=== PATIENT | female | born 1935 | race Caucasian/White ===

== ENCOUNTER 2019-10-21 16:30 | Emergency (ER) | payer MEDICARE, BC, SELFPAY ==
--- NOTE | ~2019-10-21 | XR_ITS ---
EXAMINATION: XR wrist LT min 3V DATE: 10/21/2019 18:11 INDICATION: Left wrist pain post fall TECHNIQUE: Posteroanterior, ulnar deviation, oblique, and lateral views of the left wrist were obtain ed. COMPARISON: none FINDINGS: Nondisplaced mildly impacted fracture of the distal left radius. The fracture appears mildly comminut ed and could not exclude intra-articular extension although no fracture gap or incongruity is evident at the articular surface. No other fractures identified. Alignment remains near-anatomic. Chondrocal cinosis most prominent at the triangular fiber cartilage complex. 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 Mild osteoarthritis at the distal radioulnar, midcarpal and m ultiple metacarpophalangeal joints. Osteopenia. IMPRESSION: 1. Nondisplaced impacted likely comminuted and potentially intra-articular fracture of the distal lef t radius. Reviewed, dictated and finalized at location A. IMPRESSION: 1. Nondisplaced impacted likely comminuted and potentially intra-articular frac ture of the distal left radius.
--- NOTE | ~2019-10-21 | XR_ITS ---
EXAMINATION: XR knee LT min 4V DATE: 10/21/2019 18:11 INDICATION: Abrasions at the anterior left knee post fall TECHNIQUE: Anteroposterior, 2 oblique and crosstable lateral views of the left knee were obtained COMPARISON: None. FINDINGS: Left total knee arthroplasty without patellar resurfacing which appears well seated in near-anatomic alignment. No fracture. No left knee joint effusion. Mild prepatellar soft tissue swelling. No radiop aque foreign bodies. Scattered atherosclerotic calcifications. IMPRESSION: 1. No left knee joint effusion, acute osseous abnormality or radiopaque foreign bodies. Reviewed, dictated and finalized at location A.
--- NOTE | ~2019-10-21 | CT_ITS ---
EXAMINATION: CT brain wo con, CT facial bones wo con DATE: 10/21/2019 18:01 INDICATION: Fall with head injury TECHNIQUE: 1. Computed tomography (CT) of the head was performed without intravenous contrast. Sagittal and melody nal reconstructions were obtained. The mA was adjusted according to patient size. Iterative reconstru ction technique was employed. The dose-length product was 605 mGy-cm. 2. CT of the facial bones and maxillofacial region was performed without intravenous contrast. Sagitt al and coronal reconstructions were obtained. Automated exposure control and iterative reconstruction technique were employed. The dose-length product was 304 mGy-cm. COMPARISON: None. FINDINGS: Head CT: No calvarial fracture. No acute intracranial hemorrhage, acute infarction or abnormal extra axial flu id collection. There is moderate scattered white matter hypoattenuation consistent with chronic small vessel ischemic disease. Ventricles are normal and symmetric. No mass/mass effect. Small right masto id effusion. Intracranial calcified cerebral atherosclerosis is noted. Maxillofacial CT: Superolateral right frontal scalp hematoma and laceration with mild soft tissue swelling stenting int o the right preseptal soft tissues of the right orbit. No post septal inflammatory stranding. Bilater al globes appear intact with images of bilateral intraocular lens replacement. No maxillofacial fract ures. Paranasal sinuses are clear. Bilateral temporomandibular joints are normal alignment. Mild markie apical lucency surrounding one of the roots of the posterior most remaining right maxillary molar. At herosclerotic calcification is at the bilateral carotid bulbs. Severe cervical spondylosis. IMPRESSION: 1. No maxillofacial or calvarial fractures. 2. Moderate scattered white matter hypoattenuation consistent with chronic small vessel ischemic dise ase. No acute intracranial process. 3. Severe spondylosis in the visualized mid to upper cervical spine with no acute osseous abnormality . Reviewed, dictated and finalized at location A. IMPRESSION: 1. No maxillofacial or calvarial fractures. 2. Moderate scattered white matter hypoattenuation consistent with chronic smal l vessel ischemic disease. No acute intracranial process. 3. Severe spondylosis in the visualized mid to upper cervical spine with no acu te osseous abnormality.
--- NOTE | ~2019-10-21 | XR_ITS ---
EXAMINATION: XR knee RT min 4V DATE: 10/21/2019 18:11 INDICATION: Right knee pain post fall after recent right knee replacement TECHNIQUE: Anteroposterior, 2 oblique and crosstable lateral views of the right knee were obtained COMPARISON: None. FINDINGS: Right total knee arthroplasty without patellar resurfacing which appears well seated in near-anatomic alignment. No fracture. Small right knee joint effusion without layering lipohemarthrosis. Scattered atherosclerotic calcifications. IMPRESSION: 1. Right total knee arthroplasty and small right knee joint effusion without evident acute osseous ab normality. Reviewed, dictated and finalized at location A. IMPRESSION: 1. Right total knee arthroplasty and small right knee joint effusion without ev ident acute osseous abnormality.
[2019-10-21 16:31] VITALS: BP 188/81; PULSE 99; RESP 18; TEMP 36.3; O2SAT 97
--- NOTE | 2019-10-21 17:36 | ED.HEATRA ---
HPI - Head Injury General Chief complaint: Head Injury Stated complaint: fall Time Seen by Provider: 10/21/19 17:11 Source: patient Mode of arrival: ambulatory Limitations: no limitations History of Present Illness HPI Narrative: This is a 84 year old female that presents to the ER for a fall today. Reports she was gardening and wasn't using her walker. Reports she lost her balance and fell onto the concrete. Does report hitting her head. Denies loss of consciousness. Reports a laceration to the lip and to the forehead. Also reports pain in her left wrist. Denies vision changes, chest pain, shortness of breath, vomiting, weakness or numbness. Related Data Allergies Allergy/AdvReac Type Severity Reaction Status Date / Time clarithromycin Allergy Unknown Unknown Verified 10/21/19 16:36 Review of Systems Review of Systems: Narrative: CONSTITUTIONAL: Denies fever EYES: Denies visual changes CARDIOVASCULAR: Denies chest pain RESPIRATORY: Denies dyspnea. GASTROINTESTINAL: Denies vomiting MUSCULOSKELETAL: Reports joint pain, and myalgia. NEUROLOGIC: Denies headache, numbness, or weakness. All systems reviewed & are unremarkable except as noted in HPI and below PMFSH Past Medical History Medical History (Updated 10/21/19 @ 21:45 by Sarai Will PA-C) History of COPD History of hypertension History of osteoporosis Surgical History Surgical History (Updated 10/21/19 @ 17:42 by Sarai Will PA-C) History of appendectomy History of hysterectomy Family History Family History (Updated 01/01/14 @ 07:13 by DOCTOR UNKNOWN) Mother Family history of heart disease in male family member before age 55 Sibling Family history of heart disease in male family member before age 55 Other Diabetes mellitus Family history of cardiovascular disease Hypertension Social History Social History Alcohol intake: current Gender identity (if verbalized by the patient): Female Exam Narrative: Exam Narrative: GENERAL: Elderly, well-nourished, and in no acute distress. HEAD: Normocephalic. 1.5 cm linear laceration to subcutaneous tissue over right eyebrow EYES: PERRLA and EOMI. Right upper and lower eyelid with mild ecchymosis and edema ENT: Nares clear, no rhinorrhea or epistaxis. Mucous membranes moist. Oropharynx without tonsillar hypertrophy exudate or other lesions. Bilateral TMs pearly lopez non-bulging. Right side of upper lip with 1 cm linear laceration NECK: Supple. No adenopathy or masses. No midline cervical spine tenderness CHEST: Clear to auscultation. No respiratory distress. No wheezes rales or rhonchi HEART: Regular rate and rhythm. No murmur heard. Normal peripheral pulses. BACK: No midline thoracic or lumbar spine tenderness EXTREMITIES: Normal range of motion. Mild edema to the left wrist. Normal sensation. Normal radial pulses SKIN: Warm, dry, no rash. NEURO: No focal deficits. Alert and oriented x3. Cranial nerves II through XII grossly intact PSYCH: Normal mood and affect Course Consultations Consultation #1: Spoke with Dr. Lloyd about patient and work-up will follow-up in clinic Date: 10/21/19 Time: 21:39 Vital Signs Vital signs: Vital Signs Temperature 97.4 F L 10/21/19 16:31 Pulse Rate 99 10/21/19 16:31 Respiratory Rate 18 10/21/19 16:31 Blood Pressure 188/81 H 10/21/19 16:31 Pulse Oximetry 97 10/21/19 16:31 Temperature 97.4 F L 10/21/19 16:31 Pulse Rate 75 10/21/19 19:56 Respiratory Rate 22 H 10/21/19 19:56 Blood Pressure 173/97 H 10/21/19 19:56 Pulse Oximetry 98 10/21/19 19:56 MDM - Head Injury MDM Narrative Medical decision making narrative: Patient presents the emergency department after a fall today with head injury. Patient uses a walker to walk and was not using her walker today. Patient is neurologically intact. CT scan of the brain and facial bones is without acute findings. Bilateral knee x-rays are without acute findings. Left wrist x-r
[2019-10-21] MEDS: TETANUS,DIPHTHERIA,AC PERTUSSIS ADULT (0.5 ML) BOOSTRIX IM (18:14)
[2019-10-21 19:56] VITALS: BP 173/97; PULSE 75; RESP 22; O2SAT 98
[2019-10-21 21:00] VITALS: BP 153/129; RESP 18; O2SAT 98
[2019-10-21 22:40] VITALS: RESP 20; O2SAT 98
== END 2019-10-21 22:20 | disposition home or self-care (01) ==
PROVIDERS: Emergency Provider Emergency Medicine; PCP Nurse Practitioner Adult Health
DX: S52.502A Unspecified fracture of the lower end of left radius, initial encounter for closed fracture (principal); S01.111A Laceration without foreign body of right eyelid and periocular area, initial encounter; S01.511A Laceration without foreign body of lip, initial encounter; J44.9 Chronic obstructive pulmonary disease, unspecified; I10 Essential (primary) hypertension; W01.0XXA Fall on same level from slipping, tripping and stumbling without subsequent striking against object, initial encounter; Z23 Encounter for immunization; M47.812 Spondylosis without myelopathy or radiculopathy, cervical region
CPT/HCPCS: 12011; 70450; 70486; 73110; 73564; 90471; 90715; 99284; A9270

== ENCOUNTER 2021-12-23 13:37 | Outpatient (CLI) | payer MEDICARE, BC, SELFPAY ==
--- NOTE | 2021-12-27 07:45 | WPDHOLTEREM ---
Holter/Event Monitor Holter/Event Monitor Date of procedure: 12/23/21 Holter/Event Procedure: 48 Hr Holter Monitor Indications: Irregular heart rate Conclusion: 1. 48 hour holter monitor on 12/23/21. 2. Underlying rhythm is sinus rhythm with sinus arrhythmia. HR range 34-112 bpm; average HR 81 bpm. HR at 34 bpm at 13:00. 3. There are 61 premature supraventricular complexes and 3 supraventricular couplets. No supraventricular tachycardia. 4. There are 1,918 premature ventricular complexes. No ventricular tachycardia. 5. No sinoatrial or atrioventricular blocks. No significant pauses greater than 2 seconds. 6. No symptoms available for correlation.
== END 2021-12-23 13:38 | disposition home or self-care (01) ==
LOC: ANHCARD 13:39
PROVIDERS: PCP Nurse Practitioner Adult Health; Visit Provider Nurse Practitioner Adult Health
DX: R00.8 Other abnormalities of heart beat (principal)
CPT/HCPCS: 93225; 93226

== ENCOUNTER 2022-10-27 21:19 | Observation (INO) | payer MEDICARE, BC, SELFPAY ==
[2022-10-27] VITALS (9 sets, daily range): BP systolic 124–136; BP diastolic 64–87; PULSE 100–113; RESP 20–23; TEMP 36.6–36.9; O2SAT 85–98
--- NOTE | ~2022-10-27 | CT_ITS ---
EXAMINATION: CTA chest PE protocol DATE: 10/27/2022 22:22 INDICATION: lung CA, hypoxia TECHNIQUE: Computed tomography angiography (CTA) of the chest was performed with 100 mL Omnipaque-350 intravenous contrast timed to evaluate the pulmonary arteries. Coronal maximum intensity projection 3D-reconstructions were created by the technologist. The dose-length product (DLP) was 232.11 mGy-cm. Automated exposure control and iterative reconstruction technique were employed. COMPARISON: CT T and L-spine 04/05/2019; x-ray chest 09/18/2014. FINDINGS: Lung parenchyma and airways: Right suprahilar mass which occludes the traversing right upper lobe pul monary arteries and bronchi. Multiple pulmonary nodules. Severe emphysematous change. Interlobular se ptal thickening. Pleura: Small bilateral pleural fluid collections, greater on the right. Thoracic inlet, axillae and chest wall: Unremarkable. Thoracic aorta: No aneurysm or dissection. Moderate arch calcification. Mediastinum: Mediastinal and bilateral hilar lymphadenopathy. Heart and pericardium: Moderate volume pericardial fluid. Coronary artery calcifications: Moderate. Upper abdomen: No significant finding. Bones: Partially visualized posterior thoracic spine fusion hardware. Multiple lytic lesions in the t horacic spine concerning for metastatic disease. Pulmonary arteries: Study quality: Adequate. Mild narrowing of the right main pulmonary artery by med iastinal lymphadenopathy. Occluded right upper lobe pulmonary arteries. No pulmonary emboli detected. IMPRESSION: No CT evidence of acute pulmonary embolus. Right suprahilar mass causing occlusion of the traversing right upper lobe pulmonary arteries and bro nchi. Multiple pulmonary nodules and mediastinal and bilateral hilar lymphadenopathy, consistent with metas tatic disease. Moderate interstitial edema with small bilateral pleural effusions. Osseous metastatic disease Reviewed, dictated and finalized at location K. IMPRESSION: No CT evidence of acute pulmonary embolus. Right suprahilar mass causing occlusion of the traversing right upper lobe pulm onary arteries and bronchi. Multiple pulmonary nodules and mediastinal and bilateral hilar lymphadenopathy, consistent with metastatic disease. Moderate interstitial edema with small bilateral pleural effusions. Osseous metastatic disease
--- NOTE | 2022-10-27 21:34 | ECG_ITS ---
Measurements Intervals [place] Rate: 106 P: 73 AR: 137 QRS: -20 QRSD: 108 T: 53 QT: 333 QTc: 442 Interpretive Statements SINUS TACHYCARDIA ABNORMAL RHYTHM ECG NO PREVIOUS ECG AVAILABLE FOR COMPARISON Electronically Signed On 10-28-2022 8:17:59 CDT by Balwinder Page M.D.
[2022-10-27 21:58] LABS: Basophils Absolute Auto 0.1 K/mm3 (0.0-0.1); Basophils Percent Auto 0.6 % (0.2-1.2); Eosinophils Absolute Auto 0.9 K/mm3 (0-0.3); Eosinophils Percent Auto 8.8 % (0-4.4); Hematocrit 39.7 % (37.0-47.0); Hemoglobin 13.1 g/dL (12.0-15.0); Immature Granulocyte Absolute 0.06 K/mm3 (0.00-0.031); Immature Granulocyte Percent A 0.6 % (0-0.5); Lymphocytes Absolute Auto 1.09 K/mm3 (0.9-3.2); Lymphocytes Percent Auto 10.2 % (18.3-44.2); Mean Corpuscular Hemoglobin 31.9 pg (26-34); Mean Corpuscular Volume 96.6 fl (80-100); Mean Platelet Volume 9.6 fl (7.4-10.4); Monocytes Absolute Auto 2.6 K/mm3 (0.1-0.6); Monocytes Percent Auto 24.1 % (2.6-8.5); Neutrophils Absolute Auto 5.9 K/mm3 (1.3-6.7); Neutrophils Percent Auto 55.7 % (45.5-73.1); Platelet Count Result 303 k/mm3 (150-375); Red Blood Count 4.11 M/mm3 (4.2-5.4); Red Cell Distribution Width 13.4 % (11.5-14.5); White Blood Count 10.7 K/mm3 (4.5-10.0)
[2022-10-27 22:07] LABS: Alanine Aminotransferase 19 U/L (6-35); Albumin Level 3.7 g/dL (3.5-5.1); Alkaline Phosphatase 70 U/L (38-126); Anion Gap 6 mmol/L (8-16); Aspartate Amino Transferase 29 U/L (14-36); Bilirubin,Total 0.6 mg/dL (0.2-1.3); Blood Urea Nitrogen 12 mg/dL (7-17); Calcium 8.8 mg/dL (8.4-10.2); Carbon Dioxide 24 mmol/L (22-30); Chloride 104 mmol/L (98-107); Estimated CRCL calculation 40 ml/min; Estimated Glomerular Filt Rate > 60; Glucose 110 mg/dL (65-110); Sodium 134 mmol/L (137-145)
[2022-10-27 22:08] LABS: INR 1.1; Prothrombin Time 14.4 Seconds (11.1-14.7)
[2022-10-27 22:09] LABS: Partial Thromboplastin Time 42.6 SECONDS (22.3-36.8)
--- NOTE | 2022-10-27 22:10 | ED.GENADULT ---
HPI - General Adult General Chief complaint: Shortness of Breath/Dyspnea Stated complaint: SOB, lung cancer Time Seen by Provider: 10/27/22 21:38 History of Present Illness HPI narrative: 87-year-old female presented the emergency department for evaluation of increased shortness of breath. Patient was recently diagnosed with lung cancer and is following up with oncology. Patient has not yet started any treatments. Patient states over the last few days she has had worsening shortness of breath and increased phlegm production. Upon arrival to the ED patient was saturating at 93% but then as she transferred to the bed she dipped down into the 80s. Patient is saturating well on 2 L of oxygen by nasal cannula. Patient denies any chest pain. Related Data Home Medications Medication Instructions Recorded Confirmed denosumab 60 mg/mL subcutaneous 60 mg subcut [id number] 12/04/19 10/28/22 syringe (Prolia) glucosamine sulfate 1,500 mg oral 1,500 mg PO BID 12/04/19 10/28/22 powder packet lysine 500 mg tablet (L-Lysine) 500 mg PO DAILY 12/04/19 10/28/22 mirtazapine 15 mg tablet 15 mg PO DAILY 12/04/19 10/28/22 multivitamin,yl-spzn-jygalmrm 1 tablet PO DAILY 12/04/19 10/28/22 (Complete Multivitamin tablet) omega 3-qzv-pkk-fish oil 1,200 mg 1 cap PO DAILY 12/04/19 10/28/22 (144 mg-216 mg) capsule (Fish Oil) turmeric root extract 500 mg 500 mg PO DAILY 12/04/19 10/28/22 capsule vitamin B complex (B 1 tablet PO DAILY 12/04/19 10/28/22 Complex-Vitamin B12 tablet) ascorbic acid (vitamin C) 1,000 mg PO DAILY 10/28/22 10/28/22 calcium carbonate 600 mg-vitamin 2 tablet PO DAILY 10/28/22 10/28/22 D3 5 mcg (200 unit) tablet cholestyramine (with sugar) 4 gram 1 ea PO TID 10/28/22 10/28/22 powder for susp in a packet diltiazem HCl 240 mg 240 mg PO DAILY 10/28/22 10/28/22 capsule,extended release 24 hr mirabegron 25 mg tablet,extended 25 mg PO DAILY 10/28/22 10/28/22 release 24 hr (Myrbetriq) potassium 99 mg PO DAILY 10/28/22 10/28/22 Allergies Allergy/AdvReac Type Severity Reaction Status Date / Time oxycodone [From Percocet] Allergy Severe vomit Verified 10/28/22 02:48 clarithromycin [From Biaxin] Allergy Ulcers Verified 10/28/22 02:48 amoxicillin AdvReac Diarrhea Verified 10/28/22 02:48 clavulanic acid AdvReac Diarrhea Verified 10/28/22 02:48 [From Augmentin] clopidogrel [From Plavix] AdvReac Other Verified 10/28/22 02:48 felodipine [From Plendil] AdvReac Cough Verified 10/28/22 02:48 tiotropium AdvReac Cough Verified 10/28/22 02:48 [From Spiriva with HandiHaler] Review of Systems Review of Systems: All systems reviewed & are unremarkable except as noted in HPI and below PMFSH Past Medical History Medical History Back pain with history of spinal surgery History of COPD History of hypertension History of osteoporosis Surgical History Surgical History H/O knee surgery History of appendectomy History of hysterectomy Family History Family History Mother Family history of heart disease in male family member before age 55 Heart disease Sibling Family history of heart disease in male family member before age 55 Lung cancer Father Hypertension Other Diabetes mellitus Grandparent Cancer Other Family history of cardiovascular disease Social History Social History Smoking packs per day: 2 Smoking cigarettes per day: 40.0 Smoking status: Former smoker Tobacco type: cigarettes Alcohol intake: current Drinks per week: 7 Substance use: never Substance use type: does not use Lack of Transportation: No Lack of Food: Never True Current Housing: I Have Housing Concerned About Future Housing: No Difficulty Paying Gas/Electric Bills: No Diffic
[2022-10-27] MEDS: ALBUTEROL SULFATE NEB 2.5 MG/3 ML INH 5 MG INHALATION (22:27)
[2022-10-28] VITALS (20 sets, daily range): BP systolic 106–138; BP diastolic 57–92; PULSE 84–108; RESP 18–24; TEMP 36.4–37.6; O2SAT 92–98; BMI 21.5
[2022-10-28 00:56] LABS: Influenza A QL RT-PCR Negative (Negative); Influenza B QL RT-PCR Negative (Negative); RSV RNA, RT-PCR Negative (Negative); SARS-CoV-2 RNA PCR Negative (Negative)
--- NOTE | 2022-10-28 01:21 | ADMGEN ---
This patient, Gladys Rollins, was admitted to Medical Room 259-. Patient/family oriented to hospital policies and general routines including ID bracelet, bed and alarms, visiting hours, pain management, procedures, bathroom and other care routines, personal items, smoking policy, room service/diet, and visiting hours. Information on how to activate the Rapid Response Team has been discussed. Patient/Family are encouraged to report perceived risks to care and to ask questions if they do not understand what they are told or what they should do.
[2022-10-28] MEDS: ALBUTEROL SULFATE NEB 2.5 MG/3 ML INH INHALATION ×4 (01:25→20:21)
[2022-10-28] MEDS: methylPREDNISolone SOD SUCC 125 MG VIAL 60 MG IV PUSH ×3 (05:33→20:59)
[2022-10-28 07:40] LABS: Basophils Absolute Auto 0.1 K/mm3 (0.0-0.1); Basophils Percent Auto 0.6 % (0.2-1.2); Eosinophils Absolute Auto 0.6 K/mm3 (0-0.3); Eosinophils Percent Auto 5.3 % (0-4.4); Hematocrit 37.2 % (37.0-47.0); Hemoglobin 12.1 g/dL (12.0-15.0); Immature Granulocyte Absolute 0.09 K/mm3 (0.00-0.031); Immature Granulocyte Percent A 0.8 % (0-0.5); Lymphocytes Absolute Auto 0.51 K/mm3 (0.9-3.2); Lymphocytes Percent Auto 4.7 % (18.3-44.2); Mean Corpuscular HGB Conc 32.5 g/dl (32-36); Mean Corpuscular Hemoglobin 31.5 pg (26-34); Mean Corpuscular Volume 96.9 fl (80-100); Mean Platelet Volume 9.6 fl (7.4-10.4); Monocytes Absolute Auto 1.2 K/mm3 (0.1-0.6); Neutrophils Absolute Auto 8.4 K/mm3 (1.3-6.7); Neutrophils Percent Auto 77.6 % (45.5-73.1); Platelet Count Result 289 k/mm3 (150-375); Red Blood Count 3.84 M/mm3 (4.2-5.4); Red Cell Distribution Width 13.3 % (11.5-14.5); White Blood Count 10.8 K/mm3 (4.5-10.0)
[2022-10-28 07:47] LABS: Alanine Aminotransferase 18 U/L (6-35); Albumin Level 3.3 g/dL (3.5-5.1); Alkaline Phosphatase 63 U/L (38-126); Anion Gap 8 mmol/L (8-16); Aspartate Amino Transferase 30 U/L (14-36); Bilirubin,Total 0.9 mg/dL (0.2-1.3); Blood Urea Nitrogen 10 mg/dL (7-17); Calcium 8.2 mg/dL (8.4-10.2); Carbon Dioxide 21 mmol/L (22-30); Chloride 106 mmol/L (98-107); Estimated CRCL calculation 47 ml/min; Estimated Glomerular Filt Rate > 60; Glucose 114 mg/dL (65-110); Sodium 135 mmol/L (137-145)
[2022-10-28] MEDS: ASCORBIC ACID 500 MG TABLET 1000 MG PO (09:24)
[2022-10-28] MEDS: ENOXAPARIN 40 MG/0.4 ML SYRINGE SUB-Q (09:25)
[2022-10-28] MEDS: MIRABEGRON 25 MG ER TABLET PO (09:25)
[2022-10-28] MEDS: OMEGA 3 POLYUNSAT FATTY ACIDS 1 GM CAP PO (09:25)
[2022-10-28] MEDS: VITAMIN B COMPLEX CAPSULE 1 CAP PO (09:25)
[2022-10-28] MEDS: CHOLESTYRAMINE (W/ SUGAR) 4 GM POWD.PACK PO (10:30)
--- NOTE | 2022-10-28 11:43 | PM.IMHP ---
H&P: HPI History of Present Illness Date/Time: 10/28/22 11:43 Chief Complaint: Shortness of breath Narrative: This is a 87-year-old female with a past medical history of COPD, hypertension and osteoporosis and recently diagnosed with lung cancer the present to the ED on 10/27/2022 with chief complaint of shortness of breath. She has not yet started treatment for lung cancer. She sees Dr. Nguyen. Shortness of breath started approximately 5 days ago in this was accompanied by increased mucus production. Patient states that the shortness of breath with both with activity and at rest. It made lying down flat very difficult. She does not have any history of any heart disease. Patient has been coughing up white/yellow sputum. Patient did not experience any hemoptysis, chest pain, lower extremity swelling. Patient was put on oxygen in the ED. With movement patient was dropping down into the 80s. She is currently on 2 L of oxygen. CTA of the chest did not reveal any PE. It did show right subhilar mass causing occlusion of the transversing right upper lobe pulmonary artery he has and bronchi I. There is evidence of osseous metastatic disease. Along with moderate interstitial edema and small pleural effusions. Patient was started on IV steroids. Patient likely experiencing her symptoms due to worsening metastatic disease. Will consult Oncology to assess the patient. Discussed with patient the need for possible home O2 evaluation. She is a past smoker of several packs a day for over 40 years and quit smoking approximately 25 years ago. She does drink several glasses of wine daily and will be monitor for alcohol withdrawal during her hospital stay. After trach in the patient she is feeling much better after receiving steroids and oxygen administration. Her symptoms have greatly improved. Review of Systems Review of Systems: All systems reviewed & are unremarkable except as noted in HPI and below PMFSH Past Medical History Medical History (Updated 10/28/22 @ 12:17 by Gisela Lynch PA-C) Back pain with history of spinal surgery History of COPD History of hypertension History of osteoporosis Surgical History Surgical History H/O knee surgery History of appendectomy History of hysterectomy Family History Family History Mother Family history of heart disease in male family member before age 55 Heart disease Sibling Family history of heart disease in male family member before age 55 Lung cancer Father Hypertension Other Diabetes mellitus Grandparent Cancer Other Family history of cardiovascular disease Social History Social History Smoking packs per day: 2 Smoking cigarettes per day: 40.0 Smoking status: Former smoker Tobacco type: cigarettes Alcohol intake: current Drinks per week: 7 Substance use: never Substance use type: does not use Lack of Transportation: No Lack of Food: Never True Current Housing: I Have Housing Concerned About Future Housing: No Difficulty Paying Gas/Electric Bills: No Difficulty Paying for Meds: No Currently Unemployed: No Education: High School Diploma/GED Difficulty w/ Childcare or Family Care: No Gender identity (if verbalized by the patient): Female Spiritual care concerns: No Meds Home Medications and Allergies Home Medications Medication Instructions Recorded Confirmed Type denosumab 60 mg/mL subcutaneous 60 mg subcut [id number] 12/04/19 10/28/22 History syringe (Prolia) glucosamine sulfate 1,500 mg oral 1,500 mg PO BID 12/04/19 10/28/22 History powder packet lysine 500 mg tablet (L-Lysine) 500 mg PO DAILY 12/04/19 10/28/22 History mirtazapine 15 mg tablet 15 mg PO DAILY 12/04/19 10/28/22 History multivitamin,uz-wdtw-vzrkxmzp 1 tablet PO DAILY
[2022-10-28 13:07] LABS: NT Pro B Type Natriuretic Pept 300 pg/mL (19.9-100)
[2022-10-28 13:42] LABS: Glucose Point of Care 239 mg/dl (65-105)
[2022-10-28 16:51] LABS: Hemoglobin A1C 5.3 % (<5.7)
[2022-10-28 17:30] LABS: Glucose Point of Care 176 mg/dl (65-105)
[2022-10-28] MEDS: MIRTAZAPINE 15 MG TABLET PO (20:59)
[2022-10-28 21:26] LABS: Glucose Point of Care 196 mg/dl (65-105)
[2022-10-29] VITALS (12 sets, daily range): BP systolic 115–125; BP diastolic 60–87; PULSE 90–109; RESP 18; TEMP 36.3–36.7; O2SAT 86–97
[2022-10-29 00:32] LABS: Glucose Point of Care 166 mg/dl (65-105)
[2022-10-29] MEDS: ALBUTEROL SULFATE NEB 2.5 MG/3 ML INH INHALATION ×3 (02:10→12:58)
[2022-10-29 05:56] LABS: Basophils Percent Auto 0.1 % (0.2-1.2); Eosinophils Percent Auto 0.1 % (0-4.4); Hematocrit 36.9 % (37.0-47.0); Immature Granulocyte Absolute 0.12 K/mm3 (0.00-0.031); Immature Granulocyte Percent A 0.8 % (0-0.5); Lymphocytes Absolute Auto 0.41 K/mm3 (0.9-3.2); Lymphocytes Percent Auto 2.7 % (18.3-44.2); Mean Corpuscular HGB Conc 32.5 g/dl (32-36); Mean Corpuscular Hemoglobin 31.4 pg (26-34); Mean Corpuscular Volume 96.6 fl (80-100); Mean Platelet Volume 9.9 fl (7.4-10.4); Monocytes Absolute Auto 1.1 K/mm3 (0.1-0.6); Monocytes Percent Auto 7.1 % (2.6-8.5); Neutrophils Absolute Auto 13.4 K/mm3 (1.3-6.7); Neutrophils Percent Auto 89.2 % (45.5-73.1); Platelet Count Result 308 k/mm3 (150-375); Red Blood Count 3.82 M/mm3 (4.2-5.4)
[2022-10-29 06:02] LABS: Glucose Point of Care 167 mg/dl (65-105)
[2022-10-29 06:08] LABS: Alanine Aminotransferase 19 U/L (6-35); Albumin Level 3.2 g/dL (3.5-5.1); Alkaline Phosphatase 57 U/L (38-126); Anion Gap 6 mmol/L (8-16); Aspartate Amino Transferase 23 U/L (14-36); Bilirubin,Total 0.4 mg/dL (0.2-1.3); Blood Urea Nitrogen 14 mg/dL (7-17); Calcium 8.8 mg/dL (8.4-10.2); Carbon Dioxide 26 mmol/L (22-30); Chloride 105 mmol/L (98-107); Estimated CRCL calculation 47 ml/min; Estimated Glomerular Filt Rate > 60; Glucose 162 mg/dL (65-110); Potassium 3.9 mmol/L (3.4-5.0); Sodium 137 mmol/L (137-145)
[2022-10-29] MEDS: methylPREDNISolone SOD SUCC 125 MG VIAL 60 MG IV PUSH ×2 (06:26→13:28)
[2022-10-29 08:21] LABS: Glucose Point of Care 161 mg/dl (65-105)
[2022-10-29] MEDS: ASCORBIC ACID 500 MG TABLET 1000 MG PO (08:44)
[2022-10-29] MEDS: ENOXAPARIN 40 MG/0.4 ML SYRINGE SUB-Q (08:45)
[2022-10-29] MEDS: MIRABEGRON 25 MG ER TABLET PO (08:45)
[2022-10-29] MEDS: THIAMINE HCL 200 MG/2 ML VIAL 100 MG IV PUSH (08:45)
[2022-10-29] MEDS: OMEGA 3 POLYUNSAT FATTY ACIDS 1 GM CAP PO (08:45)
[2022-10-29] MEDS: VITAMIN B COMPLEX CAPSULE 1 CAP PO (08:45)
[2022-10-29] MEDS: CHOLESTYRAMINE (W/ SUGAR) 4 GM POWD.PACK PO (10:26)
[2022-10-29 11:57] LABS: Glucose Point of Care 175 mg/dl (65-105)
--- NOTE | 2022-10-29 12:21 | PM.DS ---
DS: Admitting Diagnosis Discharge Date 10/29/22 Admitting Diagnosis Bronchial obstruction DS: Discharge Diagnosis Discharge Diagnosis (1) Lung cancer: Code(s): C34.90 - Malignant neoplasm of unspecified part of unspecified bronchus or lung Status: Chronic Assessment and Plan: Patient recently diagnosed with lung cancer. Most recent CTA revealed multiple pulmonary nodules and mediastinal and bilateral hilar lymphadenopathy consistent with metastatic disease. Osseous metastases were also seen. IV methylprednisone 60 mg q.8 hours transition to p.o. Patient currently on 2 L of oxygen. Wean to maintain O2 saturation greater than 92%. Home oxygen evaluation ordered DuoNebs ordered. Oncology consulted. (2) Hypoxia: Code(s): R09.02 - Hypoxemia Status: Acute Assessment and Plan: Patient on 2 L. Wean oxygen to maintain O2 saturation greater than 92%. Symptoms likely due to bronchial obstruction. See above (3) History of hypertension: Code(s): Z86.79 - Personal history of other diseases of the circulatory system Status: Chronic Assessment and Plan: Continue home medications. (4) History of COPD: Code(s): Z87.09 - Personal history of other diseases of the respiratory system Status: Chronic Assessment and Plan: Patient on IV steroids. DuoNebs q.6 hours DS: Summary Hospital Course Hospital Course: This is a 87-year-old female with a past medical history of COPD, hypertension and osteoporosis and recently diagnosed with lung cancer the present to the ED on 10/27/2022 with chief complaint of shortness of breath.? She has not yet started treatment for lung cancer.? She sees Dr. Nguyen. Shortness of breath started approximately 5 days ago in this was accompanied by increased mucus production.? Patient states that the shortness of breath with both with activity and at rest.? It made lying down flat very difficult.? She does not have any history of any heart disease.? Patient has been coughing up white/yellow sputum.? Patient did not experience any hemoptysis, chest pain, lower extremity swelling.? Patient was put on oxygen in the ED. With movement patient was dropping down into the 80s.? Put on 2 L of oxygen.? CTA of the chest did not reveal any PE.? It did show right subhilar mass causing occlusion of the transversing right upper lobe pulmonary artery he has and bronchi I.? There is evidence of osseous metastatic disease.? Along with moderate interstitial edema and small pleural effusions.? Patient was started on IV steroids.? Patient likely experiencing her symptoms due to worsening metastatic disease. She is a past smoker of several packs a day for over 40 years and quit smoking approximately 25 years ago.? Symptoms improved greatly with IV steroids and oxygen administration. Home O2 evaluation performed. Will send patient home on p.o. steroids and home O2 set up. She does have planned follow-up with Oncology and advised her to keep this follow-up. Patient's labs and vital signs are stable and she is medically clear for discharge. Time Spent with Patient Time attestation: Total time spent providing and/or coordinating discharge services: Exam Narrative: GENERAL: Comfortable, no acute distress HENMT: moist mucous membranes EYES: EOM intact b/l NECK: no lymphadenopathy RESPIRATORY: Clear to auscultation CARDIO: RRR GI: soft, nontender, bowel sounds present SKIN: no rashes EXTREMITIES: no edema, redness or tenderness DS: Data Data Completed and Pending Labs on day of discharge: Labs from last 24 hours 10/29/22 10/29/22 10/29/22 11:54 08:18 05:26 WBC RBC Hgb Hct MCV MCH MCHC RDW Plt Count MPV Immature Gran % (Auto) Neut % (Auto) Lymph % (Auto) [place] % (Auto) Eos % (Auto) Baso % (Auto) Lymph # (Auto) [facility] # (Auto) Eos # (Auto) Baso #
--- NOTE | 2022-10-30 08:41 | HOMEO2EVAL ---
Evaluation was performed at [facility] Home Oxygen Evaluation RC: Home Oxygen (O2) Evaluation Start: 10/29/22 09:39 Freq: ONCE Status: Discharge Protocol: RPE Activity Type Activity Date Activity User E-sign Co-sign Detail Recorded Client Recorded Date Recorded By Document 10/29/22 09:45 VLS [email or web address] 10/29/22 10:15 VLS Document 10/29/22 09:45 VLS [email or web address] 10/29/22 10:15 VLS Document 10/29/22 09:50 VLS [email or web address] 10/29/22 10:15 VLS Document 10/29/22 09:50 VLS [email or web address] 10/29/22 10:15 VLS Document 10/29/22 10:05 VLS [email or web address] 10/29/22 10:15 VLS 10/29/22 10/29/22 10/29/22 09:45 09:45 09:50 Home O2 Evaluation [Oxygen] -Test Phase Resting Resting Exercise -Oxygen Delivery Room Air Nasal Cannula Nasal Cannula [Pulse Oximetry] -Pulse Oximetry (90-100 %) 86 L 90 86 L [Pulse Rate] -Pulse Rate (60-100 beats/min) 104 H 104 H 105 H [Evaluation] -Activity Tolerance Good [Exercise] -Ambulation Distance (feet) -Ambulation Distance (meters) [Comments] -Home Oxygen Evaluation Comments Oxygen put on Oxygen patient at 1LPM increased to 2LPM [Charges] -Treatment Charges O2 Evaluation - Inpatient 10/29/22 10/29/22 09:50 10:05 Home O2 Evaluation [Oxygen] -Test Phase Exercise Exercise -Oxygen Delivery Nasal Cannula Nasal Cannula [Pulse Oximetry] -Pulse Oximetry (90-100 %) 90 90 [Pulse Rate] -Pulse Rate (60-100 beats/min) 106 H 109 H [Evaluation] -Activity Tolerance Good Good [Exercise] -Ambulation Distance (feet) 200 -Ambulation Distance (meters) 60.95 [Comments] -Home Oxygen Evaluation Comments O2 sat never decreased under 89% while walking on 2LPM . Patient will need 1LPM with rest and 2LPM with exertion [Charges] -Treatment Charges
== END 2022-10-29 14:00 | disposition home or self-care (01) ==
LOC: ANHED 10-28 00:06 → ANH2MED 10-29 12:33
PROVIDERS: Internal Medicine Critical Care Medicine; Admitting Provider Internal Medicine; Emergency Provider Emergency Medicine; PCP Nurse Practitioner Family; Visit Provider Internal Medicine
DX: C34.90 Malignant neoplasm of unspecified part of unspecified bronchus or lung (principal); R09.02 Hypoxemia; J44.9 Chronic obstructive pulmonary disease, unspecified; I10 Essential (primary) hypertension; Z20.822 Contact with and (suspected) exposure to COVID-19; M81.0 Age-related osteoporosis without current pathological fracture; R91.8 Other nonspecific abnormal finding of lung field; R59.1 Generalized enlarged lymph nodes; M54.9 Dorsalgia, unspecified; R00.0 Tachycardia, unspecified; R94.31 Abnormal electrocardiogram [ECG] [EKG]; F10.90 Alcohol use, unspecified, uncomplicated; Z87.891 Personal history of nicotine dependence; Z79.899 Other long term (current) drug therapy; Z82.49 Family history of ischemic heart disease and other diseases of the circulatory system
CPT/HCPCS: 36415; 71275; 80053; 82948; 83036; 83880; 85025; 85610; 85730; 87637; 93005; 94618; 94640; 96372; 96374; 96375; 96376; 99285; A9270; G0378; J1650; J2930; J3411; Q9967

== ENCOUNTER 2022-10-31 13:17 | Outpatient (CLI) | payer MEDICARE, BC, SELFPAY ==
--- NOTE | ~2022-10-31 | PE_ITS ---
EXAMINATION: PET skull to mid thigh DATE: 10/31/2022 15:55 INDICATION: Malignant neoplasm of the lung TECHNIQUE: Blood glucose level was 87 mg/dL. 9.595 mCi of 18-fluorodeoxyglucose (18-FDG) was administ ered i.v. Low dose computed tomography (CT) images were acquired from the base of the brain to the pr oximal thighs for attenuation correction and anatomic localization. Positron emission tomography (PET ) images were acquired in the same distribution beginning 63 minutes after injection. The dose-length product (DLP) was 489.02 mGy-cm. COMPARISON: 10/27/2022 FINDINGS: Head/neck: There is bilateral suboccipital FDG activity without suspicious CT correlate in areas of f at attenuation. Chest: There is an approximately 6.5 x 4.5 cm right perihilar upper lobe mass with abnormal FDG uptak e and SUV max of 8.3. There is resulting peripheral atelectasis and pneumonia in the right upper lobe . There is interlobular septal thickening in the right lung apex which could reflect lymphangitic car cinomatosis. There are greater than 10 nodules in the lungs, involving all lobes, measuring up to 2 c m with abnormal FDG uptake. There are small pleural effusions, right greater than left. There is subc arinal, aorticopulmonary window, right paratracheal, and right supraclavicular lymphadenopathy with a bnormal FDG uptake. The heart size is normal. There is no pneumothorax. Abdomen/pelvis/proximal thighs: Physiologic FDG activity is present in the bowel and urinary tract. T he liver, spleen, pancreas, and right adrenal gland are normal. There is mild FDG uptake in associati on with the left adrenal gland without discrete mass identified. The gallbladder is surgically absent . No pathologically enlarged abdominal or pelvic lymph nodes are identified. No free intraperitoneal gas or evidence of bowel obstruction. Musculoskeletal: There are widespread lytic osseous metastases. Multiple rib lesions are noted includ ing an expansile lesion of the posterior right 10th rib with pathologic fracture. There are lytic met astases of the T3, T12, L2, L3, and S2 vertebral bodies as well as the left iliac bone and proximal l eft femur. IMPRESSION: 1. Right perihilar upper lobe mass, consistent with primary bronchogenic carcinoma. 2. Multiple bilateral lung nodules, mediastinal lymphadenopathy, and widespread lytic osseous lesions , consistent with metastatic disease. Reviewed, dictated and finalized at location [] IMPRESSION: 1. Right perihilar upper lobe mass, consistent with primary bronchogenic carcin jackeline. 2. Multiple bilateral lung nodules, mediastinal lymphadenopathy, and widespread lytic osseous lesions, consistent with metastatic disease.
[2022-10-31 14:11] LABS: Glucose Point of Care 87 mg/dl (65-105)
== END 2022-10-31 13:18 | disposition home or self-care (01) ==
LOC: ANHIMG 13:35
PROVIDERS: PCP Nurse Practitioner Family; Visit Provider Internal Medicine Hematology & Oncology
DX: C34.11 Malignant neoplasm of upper lobe, right bronchus or lung (principal)
CPT/HCPCS: 78815; A9552

== ENCOUNTER 2022-11-03 12:37 | Outpatient (CLI) | payer MEDICARE, BC, SELFPAY ==
--- NOTE | ~2022-11-03 | MR_ITS ---
EXAMINATION: MR brain/brain stem wo/w con DATE: 11/03/2022 13:47 INDICATION: Lung cancer TECHNIQUE: Magnetic resonance imaging (MRI) of the brain and brainstem was performed without and with 9 mL Multihance intravenous contrast. Sequences included sagittal and axial T1-weighted SE, axial di ffusion-weighted FS SE, axial T2*-weighted GRE, axial 3D SWAN, axial T2-weighted FLAIR, and axial T2- weighted FSE. Postcontrast axial and coronal T1-weighted SE was obtained. Apparent diffusion coeffici ent (ADC) maps were created. COMPARISON: Head CT dated 10/21/2019 FINDINGS: There are no areas of restricted diffusion to suggest acute infarction. No intracranial hemorrhage or abnormal intracranial mass lesion. There are scattered areas of nonspecific increased T2-weighted si gnal intensity in the cerebral white matter, predominantly involving the deep and periventricular whi te matter and in the central bill. There are no intraparenchymal signal abnormalities seen on the [facility] er pulse sequences. The ventricles are symmetric and normal in size. There are no abnormal extra-axia l fluid collections. Flow voids are seen in the cerebral arteries on the T2-weighted sequences consis tent with their expected patency. Changes of bilateral intraocular lens replacement. Visualized orbit s and soft tissues are unremarkable. There are no areas of abnormal enhancement on the post contrast images. IMPRESSION: 1. No acute intracranial process or evident metastatic disease. 2. Moderate scattered nonspecific cerebral and pontine white matter T2 hyperintensity which is within normal limits for age and likely sequela of chronic small vessel ischemic disease. Reviewed, dictated and finalized at location A. IMPRESSION: 1. No acute intracranial process or evident metastatic disease. 2. Moderate scattered nonspecific cerebral and pontine white matter T2 hyperint ensity which is within normal limits for age and likely sequela of chronic smal l vessel ischemic disease.
== END 2022-11-03 12:38 | disposition home or self-care (01) ==
LOC: ANHIMG 12:42
PROVIDERS: PCP Nurse Practitioner Family; Visit Provider Internal Medicine Hematology & Oncology
DX: C34.90 Malignant neoplasm of unspecified part of unspecified bronchus or lung (principal); R93.0 Abnormal findings on diagnostic imaging of skull and head, not elsewhere classified
CPT/HCPCS: 70553; A9577

== ENCOUNTER 2022-11-06 11:15 | Outpatient (CLI) | payer MEDICARE, BC, SELFPAY ==
[2022-10-30 11:56] VITALS: BMI 20.2
--- NOTE | 2022-10-30 13:32 | PC.NURSE ---
Pre Radiology instructions Report to the [facility]TR[facility] on date __11/06/22___ at time _10:30AM for procedure Time: _11:00AM___ YOU MAY BE MONITORED AT HOSPITAL FOR UP TO 4 HOURS AFTER YOUR PROCEDURE. A visitor will be allowed to accompany the patient into the hospital. You and your visitor will be asked to self-screen and do not enter if you have any COVID symptoms. A mask is OPTIONAL within the hospital. Patients are to have no food or drink 6 hours prior to procedure time Driving will be restricted after the procedure, you must have a person to drive you home. Labs will be drawn in preop area and once reviewed, you will be taken to radiology area for procedure. When the procedure is completed, you will be taken to outpatient where you will be monitored for several hours. You may have one visitor in this area. Other than holding anti-coagulants, patient may take other medication(s) as scheduled. Prior to your appointment date patients are instructed to hold anti-coagulants after discussing with ordering provider to stop. If unable to discontinue anti-coagulants please notify radiologist. ? No aspirin or warfarin (Coumadin) for 7 days prior to the procedure. ? No clopidogrel (Plavix), ticagrelor (Brilinta), prasugrel (Effient) or dabigatran (Pradaxa) for 5 days prior to the procedure. ? No rivaroxaban (Xarelto), apixaban (Eliquis), dipyridamole (Aggrenox or Persantine) or cilostazol (Pletal) for 2 days prior to the procedure. Medications to discontinue per physician: __NONE Date to take last dose: Please leave all valuables, including medications, at home the day of procedure. The hospital will not accept responsibility for valuables. Wear comfortable, loose fitting clothing.? Follow any additional instructions given to you from ordering provider. Telephone instructions given to __PATIENT and asked if any additional questions and then verbalized understanding. Patient advised to call scheduling provider office or registration scheduling [phone] if any additional questions.
--- NOTE | ~2022-11-06 | CT_ITS ---
EXAMINATION: CT biopsy bone deep DATE: 11/06/2022 12:18 INDICATION: Lytic lesion of left ilium. TECHNIQUE: The procedure including the risks, benefits, and alternatives was discussed with the patie nt. Risks discussed included bleeding and infection. The patient verbalized understanding of the risk s and agreed to proceed. The skin overlying the left ilium was prepped and draped in usual sterile f ashion. Anesthetic was administered with 1% lidocaine subcutaneously. A 16 gauge outer needle was a dvanced under CT guidance into the left ilium. An 18 gauge core biopsy needle was then used to obtain 3 core biopsy specimens. The mA was adjusted according to patient size. Iterative reconstruction mango hnique was employed. The dose-length product was 118.91 mGy-cm. The needle was removed and the entry site was cleaned and dressed. There were no immediate complications. FINDINGS: CT images demonstrate the outer needle tip adjacent to a 5 cm lytic lesion in left ilium. IMPRESSION: 1. CT-guided core needle biopsy of a lytic lesion in left ilium. Reviewed, dictated and finalized at location A.
[2022-11-06 12:15] VITALS: BP 112/101; PULSE 107; RESP 19; O2SAT 92
[2022-11-06 12:18] VITALS: BP 105/50; PULSE 97; RESP 18; O2SAT 97
== END 2022-11-06 11:16 | disposition home or self-care (01) ==
PROVIDERS: PCP Nurse Practitioner Adult Health; Referring Provider Internal Medicine Hematology & Oncology; Visit Provider Internal Medicine Hematology & Oncology
DX: C34.90 Malignant neoplasm of unspecified part of unspecified bronchus or lung (principal)
CPT/HCPCS: 20225; 77012; 88305

== ENCOUNTER 2022-11-10 13:35 | Outpatient (CLI) | payer MEDICARE, BC, SELFPAY ==
[2022-11-10 13:48] LABS: Basophils Absolute Auto 0.1 K/mm3 (0.0-0.1); Basophils Percent Auto 0.4 % (0.2-1.2); Eosinophils Absolute Auto 0.6 K/mm3 (0-0.3); Eosinophils Percent Auto 5.3 % (0-4.4); Hematocrit 34.7 % (37.0-47.0); Hemoglobin 11.4 g/dL (12.0-15.0); Immature Granulocyte Absolute 0.19 K/mm3 (0.00-0.031); Immature Granulocyte Percent A 1.6 % (0-0.5); Lymphocytes Absolute Auto 0.79 K/mm3 (0.9-3.2); Lymphocytes Percent Auto 6.7 % (18.3-44.2); Mean Corpuscular HGB Conc 32.9 g/dl (32-36); Mean Corpuscular Hemoglobin 31.1 pg (26-34); Mean Corpuscular Volume 94.8 fl (80-100); Monocytes Absolute Auto 2.4 K/mm3 (0.1-0.6); Monocytes Percent Auto 20.7 % (2.6-8.5); Neutrophils Absolute Auto 7.7 K/mm3 (1.3-6.7); Neutrophils Percent Auto 65.3 % (45.5-73.1); Platelet Count Result 354 k/mm3 (150-375); Red Blood Count 3.66 M/mm3 (4.2-5.4); Red Cell Distribution Width 13.2 % (11.5-14.5); White Blood Count 11.8 K/mm3 (4.5-10.0)
[2022-11-10 13:54] LABS: Blood Urea Nitrogen 9 mg/dL (8-26); Carbon Dioxide 22 mmol/L (22-30); Chloride 101 mmol/L (98-109); Estimated Glomerular Filt Rate > 60; Glucose 108 mg/dL (70-105); Ionized Calcium (POC) 1.21 mmol/L (1.11-1.31); Potassium 3.7 mmol/L (3.5-4.9); Sodium 135 mmol/L (138-146)
[2022-11-10 15:36] LABS: Alanine Aminotransferase 22 U/L (6-35); Albumin Level 3.3 g/dL (3.5-5.1); Alkaline Phosphatase 73 U/L (38-126); Anion Gap 5 mmol/L (8-16); Aspartate Amino Transferase 25 U/L (14-36); Bilirubin,Total 0.6 mg/dL (0.2-1.3); Blood Urea Nitrogen 11 mg/dL (7-17); Calcium 8.8 mg/dL (8.4-10.2); Carbon Dioxide 24 mmol/L (22-30); Chloride 103 mmol/L (98-107); Estimated Glomerular Filt Rate > 60; Glucose 108 mg/dL (65-110); Potassium 3.7 mmol/L (3.4-5.0); Sodium 132 mmol/L (137-145)
[2022-11-13 12:35] LABS: Albumin 2.6 g/dL (3.8-4.8); Alpha 1 Globulin 0.6 g/dL (0.2-0.3); Beta 1 Globulin 0.3 g/dL (0.4-0.6); Gamma Globulin 0.6 g/dL (0.8-1.7); Protein, Total 5.5 g/dL (6.1-8.1)
== END 2022-11-10 13:36 | disposition home or self-care (01) ==
LOC: ANHLAB 13:37
PROVIDERS: PCP Nurse Practitioner Family; Visit Provider Internal Medicine Hematology & Oncology
DX: C34.90 Malignant neoplasm of unspecified part of unspecified bronchus or lung (principal)
CPT/HCPCS: 36415; 80047; 80053; 84155; 84165; 85025

== ENCOUNTER 2022-11-12 03:35 | Inpatient (IN) | payer MEDICARE, BC, SELFPAY ==
[2022-11-12] VITALS (31 sets, daily range): BP systolic 130–153; BP diastolic 51–91; PULSE 99–127; RESP 14–31; TEMP 36.6–37.4; O2SAT 91–99; BMI 23.5
--- NOTE | ~2022-11-12 | CT_ITS ---
EXAMINATION: CTA chest PE protocol DATE: 11/12/2022 04:52 INDICATION: Shortness of breath. TECHNIQUE: Computed tomography angiography (CTA) of the chest was performed with 100 mL Omnipaque-350 intravenous contrast timed to evaluate the pulmonary arteries. Coronal maximum intensity projection 3D-reconstructions were created by the technologist. Automated exposure control and iterative reconst ruction technique were employed. The dose-length product was 195.64 mGy-cm. COMPARISON: Chest CT 10/27/2022 FINDINGS: There is moderate emphysema. There are moderate-sized right and small left pleural effusion s. There is an 8.7 x 4.6 cm mass in right perihilar region. The mass occludes the right upper lobe pu lmonary artery and right upper lobe bronchus. There is septal thickening in right upper lobe, consist ent with focal pulmonary edema. There are greater than 10 nodules in the lungs measuring up to 18 mm. There is dependent atelectasis bilaterally. There is mediastinal, hilar, and left supraclavicular ly mphadenopathy. The heart size is normal. There is a small pericardial effusion. There are coronary ar myla calcifications. There is no pulmonary embolus. There are lytic lesions in right second rib, righ t ninth rib, T3, T11, T12, and L1. There are changes of posterior fusion procedure from T10 to the marcelino mbar spine. There is severe thoracic spondylosis. IMPRESSION: 1. No pulmonary embolus. 2. Right lung mass, multiple lung nodules, chest lymphadenopathy, and bone lesions, consistent with m etastatic disease. 3. Moderate emphysema. 4. Moderate-sized right and small left pleural effusions. 5. Small pericardial effusion. Reviewed, dictated and finalized at location E. IMPRESSION: 1. No pulmonary embolus. 2. Right lung mass, multiple lung nodules, chest lymphadenopathy, and bone lesi ons, consistent with metastatic disease. 3. Moderate emphysema. 4. Moderate-sized right and small left pleural effusions. 5. Small pericardial effusion.
--- NOTE | ~2022-11-12 | XR_ITS ---
EXAMINATION: XR chest 1V portable DATE: 11/12/2022 04:58 INDICATION: Shortness of breath. TECHNIQUE: A single frontal view of the chest was obtained. COMPARISON: Chest 2 views 09/18/2014, chest CT 11/12/2022 FINDINGS: There is volume loss of right upper lobe with upward displacement of the minor fissure. The re is a right perihilar mass. There are scattered nodules in the lungs. There is a diffuse interstiti al pattern in the lungs. There are small pleural effusions. No pneumothorax. The heart size is normal . There are changes of posterior fusion procedure in thoracolumbar spine. IMPRESSION: 1. Right perihilar mass and scattered lung nodules, consistent with primary bronchogenic carcinoma an d metastatic disease. 2. Mild pulmonary edema. 3. Small pleural effusions. Reviewed, dictated and finalized at location A. IMPRESSION: 1. Right perihilar mass and scattered lung nodules, consistent with primary bro nchogenic carcinoma and metastatic disease. 2. Mild pulmonary edema. 3. Small pleural effusions.
--- NOTE | 2022-11-12 03:46 | ECG_ITS ---
Measurements Intervals [place] Rate: 123 P: 72 AK: 145 QRS: -3 QRSD: 90 T: 48 QT: 300 QTc: 429 Interpretive Statements SINUS TACHYCARDIA DELAYED PRECORDIAL R/S TRANSITION BASELINE ARTIFACT- I, II, AVF, V4, V6 ABNORMAL ECG COMPARED TO ECG 10/27/2022 21:37:49 HEART RATE HAS INCREASED Electronically Signed On 11-12-2022 7:34:57 CDT by Marlon Carlson D.O.
[2022-11-12 04:07] LABS: Basophils Absolute Auto 0.1 K/mm3 (0.0-0.1); Basophils Percent Auto 0.4 % (0.2-1.2); Eosinophils Absolute Auto 0.9 K/mm3 (0-0.3); Eosinophils Percent Auto 5.1 % (0-4.4); Hematocrit 35.3 % (37.0-47.0); Hemoglobin 11.6 g/dL (12.0-15.0); Immature Granulocyte Absolute 0.24 K/mm3 (0.00-0.031); Immature Granulocyte Percent A 1.3 % (0-0.5); Lymphocytes Percent Auto 4.5 % (18.3-44.2); Mean Corpuscular HGB Conc 32.9 g/dl (32-36); Mean Corpuscular Hemoglobin 31.6 pg (26-34); Mean Corpuscular Volume 96.2 fl (80-100); Mean Platelet Volume 9.3 fl (7.4-10.4); Monocytes Absolute Auto 2.6 K/mm3 (0.1-0.6); Monocytes Percent Auto 14.5 % (2.6-8.5); Neutrophils Absolute Auto 13.2 K/mm3 (1.3-6.7); Neutrophils Percent Auto 74.2 % (45.5-73.1); Platelet Count Result 422 k/mm3 (150-375); Red Blood Count 3.67 M/mm3 (4.2-5.4); Red Cell Distribution Width 13.2 % (11.5-14.5); White Blood Count 17.8 K/mm3 (4.5-10.0)
[2022-11-12 04:17] LABS: Alanine Aminotransferase 22 U/L (6-35); Albumin Level 3.3 g/dL (3.5-5.1); Alkaline Phosphatase 78 U/L (38-126); Anion Gap 2 mmol/L (8-16); Aspartate Amino Transferase 30 U/L (14-36); Bilirubin,Total 0.5 mg/dL (0.2-1.3); Blood Urea Nitrogen 13 mg/dL (7-17); Carbon Dioxide 25 mmol/L (22-30); Chloride 98 mmol/L (98-107); Estimated CRCL calculation 0 ml/min; Estimated Glomerular Filt Rate > 60; Glucose 149 mg/dL (65-110); Potassium 3.5 mmol/L (3.4-5.0); Sodium 125 mmol/L (137-145)
[2022-11-12 04:18] LABS: INR 1.1; Prothrombin Time 14.7 Seconds (11.1-14.7)
[2022-11-12 04:19] LABS: Partial Thromboplastin Time 30.1 SECONDS (22.3-36.8)
[2022-11-12] MEDS: MORPHINE SULFATE (*CRX) 4 MG/ML INJ IV PUSH (04:23)
[2022-11-12] MEDS: ALBUTEROL SULFATE NEB 2.5 MG/3 ML INH INHALATION ×5 (04:23→21:00)
[2022-11-12 04:28] LABS: NT Pro B Type Natriuretic Pept 551 pg/mL (19.9-100); Troponin I 0.016 ng/mL (0.000-0.034)
[2022-11-12 04:47] LABS: Lactic Acid Reflex 1.3 mmol/L (0.7-2.0)
--- NOTE | 2022-11-12 04:53 | ED.GENADULT ---
HPI - General Adult General Chief complaint: Shortness of Breath/Dyspnea Stated complaint: SOB Time Seen by Provider: 11/12/22 04:04 History of Present Illness HPI narrative: Patient 87-year-old female who presents the emergency department with chief complaint of cough and shortness of breath. The patient reports that she was recently diagnosed with non-small cell lung cancer patient reports that she recently had a biopsy and sees Dr. Beauchamp and they were planning on setting things up including starting a port and starting chemo. Patient reports that she took a large dose of Mucinex and since that she has been coughing up mucus and has been wheezing the patient reports that she cannot get comfortable with this reports symptoms or not improved by anything reports she had no fever at home Related Data Home Medications Medication Instructions Recorded Confirmed denosumab 60 mg/mL subcutaneous 60 mg subcut [id number] 12/04/19 10/30/22 syringe (Prolia) glucosamine sulfate 1,500 mg oral 1,500 mg PO BID 12/04/19 10/30/22 powder packet lysine 500 mg tablet (L-Lysine) 500 mg PO DAILY 12/04/19 10/30/22 mirtazapine 15 mg tablet 15 mg PO DAILY 12/04/19 10/30/22 multivitamin,qs-vxzg-gehlqexu 1 tablet PO DAILY 12/04/19 10/30/22 (Complete Multivitamin tablet) omega 2-sua-tdq-fish oil 1,200 mg 1 cap PO HS 12/04/19 10/30/22 (144 mg-216 mg) capsule (Fish Oil) turmeric root extract 500 mg 500 mg PO DAILY 12/04/19 10/30/22 capsule vitamin B complex (B 1 tablet PO DAILY 12/04/19 10/30/22 Complex-Vitamin B12 tablet) calcium carbonate 600 mg-vitamin 1 tablet PO BID 10/28/22 10/30/22 D3 5 mcg (200 unit) tablet cholestyramine (with sugar) 4 gram 1 ea PO DAILY 10/28/22 10/30/22 powder for susp in a packet diltiazem HCl 240 mg 240 mg PO QAM 10/28/22 10/30/22 capsule,extended release 24 hr mirabegron 25 mg tablet,extended 25 mg PO QAM 10/28/22 10/30/22 release 24 hr (Myrbetriq) ascorbic acid (vitamin C) 1,000 mg 1 g PO DAILY 10/30/22 10/30/22 tablet guaifenesin 1,200 mg tablet, 1,200 mg PO BID 10/30/22 10/30/22 extended release 12 hr (Mucinex) potassium citrate 99 mg capsule 99 mg PO DAILY 10/30/22 10/30/22 Allergies Allergy/AdvReac Type Severity Reaction Status Date / Time oxycodone [From Percocet] AdvReac Severe vomit Verified 11/12/22 03:56 amoxicillin AdvReac Diarrhea Verified 11/12/22 03:56 clarithromycin [From Biaxin] AdvReac Ulcers Verified 11/12/22 03:56 clavulanic acid AdvReac Diarrhea Verified 11/12/22 03:56 [From Augmentin] clopidogrel [From Plavix] AdvReac Other Verified 11/12/22 03:56 felodipine [From Plendil] AdvReac Cough Verified 11/12/22 03:56 tiotropium AdvReac Cough Verified 11/12/22 03:56 [From Spiriva with HandiHaler] Review of Systems Review of Systems: A 10 system review of systems was completed on the patient and is negative except for what is stated in the HPI. Nursing and ancillary documentation was reviewed. [facility] Past Medical History Medical History Back pain with history of spinal surgery History of COPD History of hypertension History of osteoporosis Surgical History Surgical History H/O knee surgery History of appendectomy History of hysterectomy Family History Family History Mother Family history of heart disease in male family member before age 55 Heart disease Sibling Family history of heart disease in male family member before age 55 Lung cancer Father Hypertension Other Diabetes mellitus Grandparent Cancer Other Family history of cardiovascular disease Social History Social History Smoking packs per day: 2 Smoking cigarettes per day: 40.0 Smoking status: Former smoker Tobacco typ
[2022-11-12 05:13] LABS: Influenza A QL RT-PCR Negative (Negative); Influenza B QL RT-PCR Negative (Negative); RSV RNA, RT-PCR Negative (Negative); SARS-CoV-2 RNA PCR Negative (Negative)
[2022-11-12] MEDS: methylPREDNISolone SOD SUCC 125 MG VIAL IV PUSH (06:40)
--- NOTE | 2022-11-12 09:40 | ADMGEN ---
This patient, Gladys Rollins, was admitted to Medical Room 252-01. Patient/family oriented to hospital policies and general routines including ID bracelet, bed and alarms, visiting hours, pain management, procedures, bathroom and other care routines, personal items, smoking policy, room service/diet, and visiting hours. Information on how to activate the Rapid Response Team has been discussed. Patient/Family are encouraged to report perceived risks to care and to ask questions if they do not understand what they are told or what they should do.
[2022-11-12] MEDS: SODIUM CHLORIDE 0.9% IV 1,000 ML 100 ML IV CONT ×2 (09:41→20:02)
[2022-11-12] MEDS: AZITHROMYCIN 500 MG/NS 250 ML 500 MG/250 ML BAG 250 MG IVPB (09:42)
[2022-11-12] MEDS: ENOXAPARIN 40 MG/0.4 ML SYRINGE SUB-Q (09:50)
--- NOTE | 2022-11-12 10:40 | PM.IMHP ---
H&P: HPI History of Present Illness Date/Time: 11/12/22 10:40 Chief Complaint: Dyspnea, cough Narrative: This is a 87-year-old female with a past medical history of COPD, hypertension and osteoporosis and recently diagnosed with lung cancer the present to the ED on 11/12/2022 with chief complaint of worsening shortness of breath. Patient recently admitted in the hospital on 10/28/2022 due to similar symptoms. She was diagnosed with small cell lung cancer approximately 1 month ago and has not yet started chemotherapy. She has metastatic disease that has spread into the lymph nodes as well as the bone. She had appointment with Dr. Ferrer on 11/10/2022 to discuss the initiation of chemotherapy and port placement. Patient states that after her last hospital stay she was feeling somewhat better and then last night she took too much Mucinex and started coughing up copious amounts of mucus. Due to coughing so much mucus and made it difficult to breathe and delayed down flat. She did not experience any hemoptysis, chest pain or heart palpitations. She does state that her mucus is yellow in color which is unchanged from baseline, chronic cough, body aches, loss of appitite and lower extremity edema that is new from her last hospital stay. She states that her lower extremity edema started approximately 2 weeks ago. Chest x-ray revealing right perihilar mass and scattered lung nodules consistent with primary bronchogenic carcinoma and metastatic disease as well as mild pulmonary edema and small pleural effusions. CTA of the chest did not show any evidence of a PE, there was right lung mass and multiple nodules, chest lymphadenopathy, bone lesions, moderate emphysema and moderate sized right and small left pleural effusions as well as a small pericardial effusion. Dr. Nguyen was consulted. IV steroids initiated as well as ceftriaxone and azithromycin. Code status was discussed with patient and she would like to remain a full code. She was having difficulty talked in full sentences without getting winded, tripoding with retractions. She is on 2.5 L of oxygen and has recently started wearing oxygen at home since her last hospital stay. At home she required 2 L with activity and 1 L at rest. Review of Systems Review of Systems: All systems reviewed & are unremarkable except as noted in HPI and below PMFSH Past Medical History Medical History Back pain with history of spinal surgery History of COPD History of hypertension History of osteoporosis Surgical History Surgical History H/O knee surgery History of appendectomy History of hysterectomy Family History Family History Mother Family history of heart disease in male family member before age 55 Heart disease Sibling Family history of heart disease in male family member before age 55 Lung cancer Father Hypertension Other Diabetes mellitus Grandparent Cancer Other Family history of cardiovascular disease Social History Social History Smoking packs per day: 2 Smoking cigarettes per day: 40.0 Years smoked: 40 Smoking pack-years: 80.00 Smoking status: Former smoker Tobacco type: cigarettes Alcohol intake: current Drinks per week: 14 Substance use: never Substance use type: does not use Lack of Transportation: No Lack of Food: Never True Current Housing: I Have Housing Concerned About Future Housing: No Difficulty Paying Gas/Electric Bills: No Difficulty Paying for Meds: No Currently Unemployed: No Education: High School Diploma/GED Difficulty w/ Childcare or Family Care: No Gender identity (if verbalized by the patient): Female Spiritual care concerns: No Meds Home Medications and Allergies Home Medication
[2022-11-12 12:13] LABS: Sodium 125 mmol/L (137-145)
[2022-11-12] MEDS: MIRTAZAPINE 15 MG TABLET PO (13:13)
[2022-11-12] MEDS: MIRABEGRON 25 MG ER TABLET PO (13:13)
[2022-11-12] MEDS: MEGESTROL ACETATE (*CHEMO) ORAL SUSP 40 MG/ML SYR 800 MG PO (13:14)
[2022-11-12] MEDS: methylPREDNISolone SOD SUCC 125 MG VIAL 60 MG IV PUSH ×2 (13:15→21:00)
[2022-11-12] MEDS: CHOLESTYRAMINE (W/ SUGAR) 4 GM POWD.PACK PO (15:48)
[2022-11-12] MEDS: LORazepam INJ (*CRX) 2 MG/ML VIAL 0.5 MG IV PUSH (15:49)
[2022-11-12 16:40] LABS: Creatinine Urine 77.8 mg/dL
[2022-11-12 16:44] LABS: Sodium Urine Random < 5 meq/L
[2022-11-12] MEDS: ACETAMINOPHEN 325 MG TABLET 650 MG PO (20:03)
[2022-11-13] VITALS (20 sets, daily range): BP systolic 105–118; BP diastolic 46–59; PULSE 75–107; RESP 16–24; TEMP 36.8–37.1; O2SAT 91–96; BMI 23.5
[2022-11-13] MEDS: LORazepam INJ (*CRX) 2 MG/ML VIAL 0.5 MG IV PUSH ×2 (03:05→23:38)
[2022-11-13] MEDS: ALBUTEROL SULFATE NEB 2.5 MG/3 ML INH INHALATION ×4 (03:30→20:06)
[2022-11-13 05:33] LABS: Basophils Percent Auto 0.2 % (0.2-1.2); Eosinophils Percent Auto 0.1 % (0-4.4); Hematocrit 29.8 % (37.0-47.0); Hemoglobin 9.8 g/dL (12.0-15.0); Immature Granulocyte Absolute 0.25 K/mm3 (0.00-0.031); Immature Granulocyte Percent A 1.4 % (0-0.5); Lymphocytes Absolute Auto 0.35 K/mm3 (0.9-3.2); Lymphocytes Percent Auto 1.9 % (18.3-44.2); Mean Corpuscular HGB Conc 32.9 g/dl (32-36); Mean Corpuscular Hemoglobin 31.6 pg (26-34); Mean Corpuscular Volume 96.1 fl (80-100); Mean Platelet Volume 9.1 fl (7.4-10.4); Monocytes Absolute Auto 0.6 K/mm3 (0.1-0.6); Monocytes Percent Auto 3.2 % (2.6-8.5); Neutrophils Absolute Auto 17.2 K/mm3 (1.3-6.7); Neutrophils Percent Auto 93.2 % (45.5-73.1); Platelet Count Result 385 k/mm3 (150-375); Red Cell Distribution Width 13.4 % (11.5-14.5); White Blood Count 18.5 K/mm3 (4.5-10.0)
[2022-11-13 05:41] LABS: Alanine Aminotransferase 20 U/L (6-35); Albumin Level 2.9 g/dL (3.5-5.1); Alkaline Phosphatase 62 U/L (38-126); Anion Gap 5 mmol/L (8-16); Aspartate Amino Transferase 25 U/L (14-36); Bilirubin,Total 0.3 mg/dL (0.2-1.3); Blood Urea Nitrogen 10 mg/dL (7-17); Calcium 7.8 mg/dL (8.4-10.2); Carbon Dioxide 21 mmol/L (22-30); Chloride 107 mmol/L (98-107); Estimated CRCL calculation 47 ml/min; Estimated Glomerular Filt Rate > 60; Glucose 122 mg/dL (65-110); Sodium 133 mmol/L (137-145)
[2022-11-13] MEDS: SODIUM CHLORIDE 0.9% IV 1,000 ML 100 ML IV CONT (06:00)
[2022-11-13] MEDS: methylPREDNISolone SOD SUCC 125 MG VIAL 60 MG IV PUSH ×3 (06:01→21:23)
[2022-11-13] MEDS: MEGESTROL ACETATE (*CHEMO) ORAL SUSP 40 MG/ML SYR 800 MG PO (09:09)
[2022-11-13] MEDS: MIRABEGRON 25 MG ER TABLET PO (09:09)
[2022-11-13] MEDS: ENOXAPARIN 40 MG/0.4 ML SYRINGE SUB-Q (09:09)
[2022-11-13] MEDS: MIRTAZAPINE 15 MG TABLET PO (09:10)
[2022-11-13] MEDS: AZITHROMYCIN 500 MG/NS 250 ML 500 MG/250 ML BAG 250 MG IVPB (10:14)
[2022-11-13] MEDS: SCOPOLAMINE 1.5 MG PATCH TRANSDERM (10:38)
[2022-11-13] MEDS: guaiFENesin 200 MG/10 ML UDC 400 MG PO ×2 (12:22→16:44)
--- NOTE | 2022-11-13 12:56 | PM.IMPN ---
Progress Note: A&P Assessment and Plan (1) Lung cancer: Code(s): C34.90 - Malignant neoplasm of unspecified part of unspecified bronchus or lung Status: Chronic Assessment and Plan: Patient recently diagnosed with lung cancer.? CTA revealed multiple pulmonary nodules, chest lymphadenopathy and bone lesions consistent with metastatic disease. IV methylprednisone 60 mg q.8 hours. Patient currently on 2 L of oxygen.? Wean to maintain O2 saturation greater than 92%.? DuoNebs q.6 hours. Oncology consulted. Care coordination consult for hospice referral. (2) Pneumonia: Code(s): J18.9 - Pneumonia, unspecified organism Status: Acute Assessment and Plan: Chest x-ray and CTA both showing bilateral pleural effusion. Patient with a white count of 17.8. Patient was on recent steroids which could explain the white count. She appears to be acutely ill so will cover for pneumonia. Ceftriaxone and azithromycin initiated. Sputum culture ordered. (3) Hypoxia: Code(s): R09.02 - Hypoxemia Status: Acute Assessment and Plan: Patient on 1 L of oxygen at rest and 2 L with activity On 2.5 L. Wean to maintain oxygen saturation greater than 90% (4) History of COPD: Code(s): Z87.09 - Personal history of other diseases of the respiratory system Status: Chronic Assessment and Plan: Continue daily inhalers as well as DuoNebs. Not in active exacerbation. (5) History of hypertension: Code(s): Z86.79 - Personal history of other diseases of the circulatory system Status: Chronic Assessment and Plan: Continue home medications. Monitor blood pressures. Plan Patient does have +2 pedal edema. Will order echocardiogram to rule out CHF causes. Subjective Date/time seen: 11/13/22 12:56 Interval history: Patient lying in bed with daughter at bedside. Daughter is the POA. Discussed with patient and the daughter about possible hospice meeting. Daughter was open to this and would like a consult for a meeting. She was still like to discuss with oncologist about prognosis and quality of life. Patient states her shortness of breath has improved. She continues to have increased mucus production and cough associated with it. Review of Systems Review of Systems: All systems reviewed & are unremarkable except as noted in HPI and below Exam Narrative: GENERAL: Comfortable, no acute distress HENMT: moist mucous membranes EYES: EOM intact b/l NECK: no lymphadenopathy RESPIRATORY: Distant breath sounds, faint bibasilar crackles CARDIO: Tachycardia, rhythm controlled GI: soft, nontender, bowel sounds present SKIN: no rashes EXTREMITIES: +2 pedal edema, no redness or tenderness Objective Data Vital Signs Vital Signs: Vital Signs - 24 hr 11/12/22 14:00 11/12/22 16:00 11/12/22 14:35 Temperature 97.9 F Pulse Rate 117 H 112 H 117 H Respiratory Rate 20 20 Blood Pressure 146/76 H Pulse Oximetry 93 Oxygen Delivery Oxygen Flow Rate Fraction of Inspired Oxygen 11/12/22 14:45 11/12/22 19:24 11/12/22 21:00 Temperature 97.8 F Pulse Rate 119 H 107 H 99 Respiratory Rate 20 20 20 Blood Pressure 130/51 L Pulse Oximetry 94 Oxygen Delivery Oxygen Flow Rate Fraction of Inspired Oxygen 11/12/22 21:21 11/12/22 21:12 11/12/22 20:00 Temperature Pulse Rate 99 103 H 105 H Respiratory Rate 20 Blood Pressure Pulse Oximetry 92 Oxygen Delivery Nasal Cannula Oxygen Flow Rate 2 Fraction of Inspired Oxygen 28 11/12/22 20:00 11/13/22 00:00 11/13/22 03:30 Temperature Pulse Rate 105 H 93 95 Respiratory Rate 18 20 Blood Pressure Pulse Oximetry 91 Oxygen Delivery Nasal Cannula Oxygen Flow Rate 2 Fraction of Inspired Oxygen 11/13/22 03:45 11/13/22 04:13 11/13/22 04:00 Temperature 98.2 F Pulse Rate 98 102 H 99 Respiratory Rate 20
--- NOTE | 2022-11-13 19:16 | PDONCCN ---
[facility] - Date of Consult Date/Time: 11/13/22 19:16 Requesting Physician: Ynes Read DO Primary Care Provider: Meera De Leon, OUTSIDE DELIVERER - Consult Narrative Reason for consult: Metastatic non-small cell lung cancer Narrative: Gladys Rollins is a 87 year old female with recent diagnosis adenocarcinoma status post left pelvic bone biopsy done on November 06, 2022. Patient had PET scan done that showed bone metastasis along with bilateral lung nodule and mediastinal lymphadenopathy. She was also referred to Pulmonary Service for cough and sputum production. She came into the hospital with shortness of breath and worsening of the cough. Chest x-ray showed right perihilar mass with scattered pulmonary nodules and mild pulmonary edema with small pleural effusion. CT of the chest showed no evidence of pulmonary embolism. She was started on IV antibiotics with azithromycin and Rocephin for probable pneumonia. She looks quite short of breath and having intermittent cough and productive sputum. She looks quite tired and fatigued. She was scheduled to have port placement as well. Review of Systems - Review of Systems All systems reviewed & are unremarkable except as noted in HPI and [facility] Medical History: Medical History (Last Reviewed 11/12/22 @ 10:50 by Gisela Lynch PA-C) Back pain with history of spinal surgery History of COPD History of hypertension History of osteoporosis Surgical History: Surgical History (Last Reviewed 11/12/22 @ 10:50 by Gisela Lynch PA-C) H/O knee surgery History of appendectomy History of hysterectomy Family History: Family History (Last Reviewed 11/12/22 @ 10:51 by Gisela Lynch PA-C) Mother Family history of heart disease in male family member before age 55 Heart disease Sibling Family history of heart disease in male family member before age 55 Lung cancer Father Hypertension Other Diabetes mellitus Grandparent Cancer Other Family history of cardiovascular disease - Social History Social History: Social History (Last Reviewed 11/12/22 @ 10:51 by Gisela Lynch PA-C) Gender Identity: Gender identity (if verbalized by the patient): Female Alcohol Use: Alcohol intake: current Drinks per week: 14 Substance Use: Substance use: never Substance use type: does not use Others: Spiritual care concerns: No Smoking Status: Smoking status: Former smoker Tobacco type: cigarettes Smoking Pack-years: Smoking packs per day: 2 Smoking cigarettes per day: 40.0 Years smoked: 40 Smoking pack-years: 80.00 Social Determinants of Health: Has the Lack of Transportation Kept You From Medical Appointments or From Getting Medications?: No Within the Past 12 Months, Were You Worried Whether Your Food Would Run Out Before You Got Money to Buy More?: Never True What is Your Housing Situation Today?: I Have Housing Are You Worried That in the Next 2 Months, You May Not Have Your Own Housing to Live In?: No Do You Have Trouble Paying Your Heating Or Electricity Bill?: No Do You Have Trouble Paying For Medicines?: No Are You Currently Unemployed and Looking for Work?: No Highest Level of Education Completed: High School Diploma/GED Do You Have Trouble With Childcare or the Care of a Family Member?: No Exam - Vital Signs Vital Signs - 24 hr 11/12/22 19:24 11/12/22 21:00 11/12/22 21:21 Temperature 36.6 C Pulse Rate 107 H 99 99 Respiratory Rate 20 20 Blood Pressure 130/51 L Pulse Oximetry 94 92 Oxygen Delivery Nasal Cannula Oxygen Flow Rate 2 Fraction of Inspired Oxygen 28 11/12/22 21:12 11/12/22 20:00 11/12/22 20:00 Temperature Pulse Rate 103 H 105 H 105 H Respiratory Rate 20 18 Blood Pressure Pulse Oximetry 91 Oxygen Delivery Nasal Cannula Oxygen Flow Rate 2 Fraction of Inspired Oxygen 11/13/22 00:00 11/04
[2022-11-13] MEDS: CHOLESTYRAMINE (W/ SUGAR) 4 GM POWD.PACK PO (21:39)
[2022-11-14] VITALS (18 sets, daily range): BP systolic 112–129; BP diastolic 47–63; PULSE 90–106; RESP 18–22; TEMP 34.7–37.1; O2SAT 92–96
--- NOTE | 2022-11-14 | ECHO_ITS ---
Patient Info Name: Gladys Rollins Age: 87 years : 1935 Gender: Female Ht: 60 in Wt: 120 lbs BSA: 1.53 m2 HR: 103 bpm BP: 120 / 52 mmHg Heart Rhythm: Sinus Rhythm, Tachycardia Technical Quality: Good Exam Date: 11/14/2022 12:01 PM Exam Location: [facility] Pulmonary Patient Status: Inpatient Admit Date: 11/13/2022 Staff Ordering Physician: Gisela Lynch PA-C [employer] Teacher: Yary Menjivar RDCS Attending Provider: Ynes Read DO Referring Physician: Syed MATHUR; Exam Type: CA echo doppler color flow Study Info Indications R60.0 - Localized edema R06.00 - Dyspnea, unspecified Complete two-dimensional, color flow and Doppler transthoracic echocardiogram is performed. Summary 1. Complete two-dimensional, color flow and Doppler transthoracic echocardiogram is performed. 2. Left ventricular chamber dimension is normal. 3. Left ventricular systolic function is normal, estimated at 65-70%. 4. The left ventricular diastolic function is grade I diastolic dysfunction. 5. Right ventricular systolic function is normal. 6. There is mild tricuspid valve regurgitation. 7. Left pleural effusion noted. 8. There is trivial circumferential pericardial effusion. Left Ventricle Left ventricular chamber dimension is normal. Left ventricular systolic function is normal, estimated at 65-70%. There is no increased left ventricular wall thickness. The left ventricular diastolic function is grade I diastolic dysfunction. Right Ventricle Right ventricular chamber dimension is normal. Right ventricular systolic function is normal. Left Atria Left atrial chamber dimension is normal. Right Atria Right atrial chamber dimension is normal. Atrial Septum Intact interatrial septum visualized by color flow imaging. Aortic Valve The aortic valve is probable trileaflet. There is moderate aortic valve sclerosis. There is no aortic valve stenosis. There is no aortic valve regurgitation. There is mild aortic valve calcification. Pulmonic Valve The pulmonic valve is not well visualized. Mitral Valve There is trace mitral valve regurgitation. Tricuspid Valve There is mild tricuspid valve regurgitation. Pericardium/Pleural Left pleural effusion noted. There is trivial circumferential pericardial effusion. Inferior Vena Cava Normal inferior vena cava with >50% collapse upon inspiration consistent with normal right atrial pressure, 3 mmHg. Aorta The aortic root size at the sinus of Valsalva is normal. Left Ventricular Outflow Tract Name Value Normal LVOT 2D LVOT Diameter 1.9 cm LVOT Doppler LVOT Peak Gradient 9 mmHg LVOT Mean Gradient 5 mmHg LVOT VTI 29 cm LVOT VTI/AV VTI Ratio 0.8 LVOT Stroke Volume 86 ml LVOT CO 8.6 l/min LVOT CI 5.6 l/min/m2 Pulmonic Valve Name Value Normal RVOT Doppler -
[2022-11-14] MEDS: ALBUTEROL SULFATE NEB 2.5 MG/3 ML INH INHALATION ×4 (02:02→21:02)
[2022-11-14] MEDS: methylPREDNISolone SOD SUCC 125 MG VIAL 60 MG IV PUSH ×2 (05:44→21:26)
[2022-11-14 05:45] LABS: Basophils Percent Auto 0.1 % (0.2-1.2); Eosinophils Percent Auto 0.1 % (0-4.4); Hematocrit 30.2 % (37.0-47.0); Hemoglobin 9.7 g/dL (12.0-15.0); Immature Granulocyte Absolute 0.26 K/mm3 (0.00-0.031); Immature Granulocyte Percent A 1.4 % (0-0.5); Lymphocytes Absolute Auto 0.27 K/mm3 (0.9-3.2); Lymphocytes Percent Auto 1.4 % (18.3-44.2); Mean Corpuscular HGB Conc 32.1 g/dl (32-36); Mean Corpuscular Volume 96.5 fl (80-100); Mean Platelet Volume 8.9 fl (7.4-10.4); Monocytes Percent Auto 5.4 % (2.6-8.5); Neutrophils Absolute Auto 17.6 K/mm3 (1.3-6.7); Neutrophils Percent Auto 91.6 % (45.5-73.1); Platelet Count Result 416 k/mm3 (150-375); Red Blood Count 3.13 M/mm3 (4.2-5.4); Red Cell Distribution Width 13.4 % (11.5-14.5); White Blood Count 19.2 K/mm3 (4.5-10.0)
[2022-11-14 06:02] LABS: Alanine Aminotransferase 22 U/L (6-35); Alkaline Phosphatase 61 U/L (38-126); Anion Gap 3 mmol/L (8-16); Aspartate Amino Transferase 29 U/L (14-36); Bilirubin,Total 0.3 mg/dL (0.2-1.3); Blood Urea Nitrogen 13 mg/dL (7-17); Calcium 8.1 mg/dL (8.4-10.2); Carbon Dioxide 25 mmol/L (22-30); Chloride 107 mmol/L (98-107); Estimated CRCL calculation 40 ml/min; Estimated Glomerular Filt Rate > 60; Glucose 124 mg/dL (65-110); Potassium 4.3 mmol/L (3.4-5.0); Sodium 135 mmol/L (137-145)
[2022-11-14] MEDS: AZITHROMYCIN 500 MG/NS 250 ML 500 MG/250 ML BAG 250 MG IVPB (08:12)
[2022-11-14] MEDS: MIRTAZAPINE 15 MG TABLET PO (08:13)
[2022-11-14] MEDS: guaiFENesin 200 MG/10 ML UDC 400 MG PO ×3 (08:13→16:44)
[2022-11-14] MEDS: MIRABEGRON 25 MG ER TABLET PO (08:13)
[2022-11-14] MEDS: MEGESTROL ACETATE (*CHEMO) ORAL SUSP 40 MG/ML SYR 800 MG PO (08:14)
[2022-11-14] MEDS: ENOXAPARIN 40 MG/0.4 ML SYRINGE SUB-Q (08:14)
--- NOTE | 2022-11-14 12:59 | PM.IMPN ---
Progress Note: A&P Assessment and Plan (1) Lung cancer: Code(s): C34.90 - Malignant neoplasm of unspecified part of unspecified bronchus or lung Status: Chronic Assessment and Plan: Patient recently diagnosed with lung cancer.? CTA revealed multiple pulmonary nodules, chest lymphadenopathy and bone lesions consistent with metastatic disease. IV methylprednisone 60 mg q.12 hours Patient currently on 2 L of oxygen.? Wean to maintain O2 saturation greater than 92%.? DuoNebs q.6 hours. Oncology consulted. Care coordination consult for hospice referral. After talking with both hospice and Oncology patient's family has decided to proceed with chemotherapy at this time. (2) Pneumonia: Code(s): J18.9 - Pneumonia, unspecified organism Status: Acute Assessment and Plan: Chest x-ray and CTA both showing bilateral pleural effusion. Patient with a white count of 17.8. Patient was on recent steroids which could explain the white count. She appears to be acutely ill so will cover for pneumonia. Ceftriaxone and azithromycin initiated. Sputum culture pending (3) Hypoxia: Code(s): R09.02 - Hypoxemia Status: Acute Assessment and Plan: Patient on 1 L of oxygen at rest and 2 L with activity On 2.5 L. Wean to maintain oxygen saturation greater than 90% (4) History of COPD: Code(s): Z87.09 - Personal history of other diseases of the respiratory system Status: Chronic Assessment and Plan: Continue daily inhalers as well as DuoNebs. Not in active exacerbation. (5) History of hypertension: Code(s): Z86.79 - Personal history of other diseases of the circulatory system Status: Chronic Assessment and Plan: Continue home medications. Monitor blood pressures. Plan Patient does have +2 pedal edema. Will order echocardiogram to rule out CHF causes. Subjective Date/time seen: 11/14/22 12:59 Interval history: Patient seems to be less mucousy today and coughing less. She is now output in her suction this morning. She seems a little more out of it today. Patient and family talk to Oncology yesterday and they have decided to proceed with chemotherapy. Patient does states that she feels like she is breathing slightly better. Review of Systems Review of Systems: All systems reviewed & are unremarkable except as noted in HPI and below Exam Narrative: GENERAL: Comfortable, no acute distress HENMT: moist mucous membranes EYES: EOM intact b/l NECK: no lymphadenopathy RESPIRATORY: Distant breath sounds, faint bibasilar crackles CARDIO: Tachycardia, rhythm controlled GI: soft, nontender, bowel sounds present SKIN: no rashes EXTREMITIES: No edema, no redness or tenderness Objective Data Vital Signs Vital Signs: Vital Signs - 24 hr 11/13/22 14:05 11/13/22 14:11 11/13/22 14:00 Temperature 98.8 F Pulse Rate 90 90 103 H Respiratory Rate 24 H 24 H 17 Blood Pressure 115/49 L Pulse Oximetry 95 Oxygen Delivery Oxygen Flow Rate Fraction of Inspired Oxygen 11/13/22 16:01 11/13/22 20:05 11/13/22 20:15 Temperature Pulse Rate 99 92 93 Respiratory Rate 22 H 24 H Blood Pressure Pulse Oximetry Oxygen Delivery Oxygen Flow Rate Fraction of Inspired Oxygen 11/13/22 20:16 11/13/22 20:00 11/13/22 22:00 Temperature 98.3 F Pulse Rate 96 106 H Respiratory Rate 24 H 18 Blood Pressure 118/59 L Pulse Oximetry 95 96 91 Oxygen Delivery Nasal Cannula Nasal Cannula Oxygen Flow Rate 2 2 Fraction of Inspired Oxygen 28 11/14/22 02:00 11/13/22 20:26 11/13/22 20:00 Temperature Pulse Rate 90 75 107 H Respiratory Rate 22 H 22 H Blood Pressure Pulse Oximetry Oxygen Delivery Oxygen Flow Rate Fraction of Inspired Oxygen 11/14/22 00:00 11/14/22 04:00 11/14/22 05:54 Temperature 94.5 F L Pulse Rate 105 H 99 102 H Respirat
[2022-11-14] MEDS: ALBUTEROL SULFATE (*SP) AEROSOL 1 PUFF 2 PUFF INHALATION (18:44)
--- NOTE | 2022-11-14 19:04 | PM.CNPUL ---
Assessment and Plan Assessment and plan (1) Lung cancer: Code(s): C34.90 - Malignant neoplasm of unspecified part of unspecified bronchus or lung Status: Chronic Assessment and Plan: Widely metastatic adenocarcinoma of the lung diagnosed from a left pelvis biopsy November 06 initial presentation was back pain; PET scan done that showed bone metastasis along with bilateral lung nodule and mediastinal lymphadenopathy. she was have treatment, too sick currently for port placement, plan is to treat for pneumonia, however discharged and have this placed outpatient.? (2) Pneumonia: Code(s): J18.9 - Pneumonia, unspecified organism Status: Acute Assessment and Plan: She may have a clinical diagnosis of pneumonia with cough, sputum production, increased shortness of breath. She is on empiric antibiotics with azithromycin and ceftriaxone. She is negative for COVID, influenza a and B, RSV. Will send urine for Legionella and pneumococcus. (3) Hypoxia: Code(s): R09.02 - Hypoxemia Status: Acute Assessment and Plan: Now on 2 L/min, saturaiton is 96%, adequate. She was just recently placed on oxygen at her last hospitalization October 28, is using it 2 L a minute at home which is adequate here. (4) COPD (chronic obstructive pulmonary disease): Code(s): J44.9 - Chronic obstructive pulmonary disease, unspecified Status: Acute Assessment and Plan: History of COPD, long history of smoking, quit 20 years ago but still uses nicotine gum 10-20 pieces per day. She is on inhalers at home including rescue medication within nebulizer and rescue inhaler.. She has not been on any nicotine replacement while here. Adrianne 1 add any additional meds that she does not really need. She does not complain of nicotine withdrawal symptoms. Plan Agree with treat for pneumonia and IV steroids for COPD; she may have post obstructive pneumonia but I think much of Her distress is the lung cancer and the multiple lung nodules superimposed on advanced COPD. I am adding a Cornet valve to help clear secretions. She had some Mucomyst which improved secretions, and see if she improves enough for a port placement for outpatient treatment of lung cancer. She tells me that although she quit smoking 20 years ago she still uses 10-20 pieces of neck the rectum per day. She has been here 3 days and has not had any nicotine and does not seem to have nicotine withdrawal symptoms. I would just avoid the nicotine replacement at this point. Urine antigens for Legionella and Streptococcus to help manage antibiotics when she comes off IV. This May be soon because she has terrible IV access. Her arms are extremely swollen. Add nebulized budesonide 0.5 mg BID for COPD controller medication. She does not appear to have much inspiratory reserve so I do not think an inhaler will be that beneficial. Her prognosis is very guarded. Consider another discussion about hospice. History of Present Illness History of Present Illness Consult date: 11/15/22 Requesting physician: Gisela Lynch PA-C Chief complaint: Pneumonia, lung cancer, leukocytosis Narrative: patient was seen November 14 19:10 NEW: Gladys Rollins is an 87-year-old woman with a recent diagnosis of adenocarcinoma of the lung, admitted with increased shortness of breath and weakness. Her cancer was found during work up for Back pain. She had surgery several years ago. She went in for re-evaluation. A CT was ordered and this showed widely metastatic lung cancer. This all happened in the last 4-5 weeks. She did not have pulmonary symptoms at the
[2022-11-14] MEDS: CHOLESTYRAMINE (W/ SUGAR) 4 GM POWD.PACK PO (21:26)
[2022-11-15] VITALS (20 sets, daily range): BP systolic 112–128; BP diastolic 56–63; PULSE 92–110; RESP 16–20; TEMP 36.6–37.2; O2SAT 92–98
[2022-11-15] MEDS: ALBUTEROL SULFATE NEB 2.5 MG/3 ML INH INHALATION ×5 (01:10→20:10)
[2022-11-15] MEDS: LORazepam INJ (*CRX) 2 MG/ML VIAL 0.5 MG IV PUSH (01:52)
[2022-11-15 05:48] LABS: Basophils Percent Auto 0.2 % (0.2-1.2); Eosinophils Percent Auto 0.1 % (0-4.4); Hematocrit 33.6 % (37.0-47.0); Hemoglobin 10.9 g/dL (12.0-15.0); Immature Granulocyte Absolute 0.15 K/mm3 (0.00-0.031); Immature Granulocyte Percent A 0.9 % (0-0.5); Lymphocytes Absolute Auto 0.16 K/mm3 (0.9-3.2); Mean Corpuscular HGB Conc 32.4 g/dl (32-36); Mean Corpuscular Volume 95.5 fl (80-100); Mean Platelet Volume 8.8 fl (7.4-10.4); Monocytes Absolute Auto 0.5 K/mm3 (0.1-0.6); Monocytes Percent Auto 2.8 % (2.6-8.5); Neutrophils Absolute Auto 15.7 K/mm3 (1.3-6.7); Platelet Count Result 436 k/mm3 (150-375); Red Blood Count 3.52 M/mm3 (4.2-5.4); Red Cell Distribution Width 13.6 % (11.5-14.5); White Blood Count 16.5 K/mm3 (4.5-10.0)
[2022-11-15] MEDS: ACETYLCYSTEINE 20% INHAL SOLN 800 MG/4 ML VIAL 200 MG INHALATION (05:52)
[2022-11-15 06:08] LABS: Alanine Aminotransferase 26 U/L (6-35); Albumin Level 3.2 g/dL (3.5-5.1); Alkaline Phosphatase 62 U/L (38-126); Anion Gap 2 mmol/L (8-16); Aspartate Amino Transferase 26 U/L (14-36); Bilirubin,Total 0.3 mg/dL (0.2-1.3); Blood Urea Nitrogen 14 mg/dL (7-17); Calcium 8.6 mg/dL (8.4-10.2); Carbon Dioxide 26 mmol/L (22-30); Chloride 106 mmol/L (98-107); Estimated CRCL calculation 40 ml/min; Estimated Glomerular Filt Rate > 60; Glucose 141 mg/dL (65-110); Potassium 4.3 mmol/L (3.4-5.0); Sodium 134 mmol/L (137-145)
[2022-11-15] MEDS: AZITHROMYCIN 500 MG/NS 250 ML 500 MG/250 ML BAG 250 MG IVPB (09:00)
[2022-11-15] MEDS: MEGESTROL ACETATE (*CHEMO) ORAL SUSP 40 MG/ML SYR 800 MG PO (09:30)
[2022-11-15] MEDS: MIRABEGRON 25 MG ER TABLET PO (09:30)
[2022-11-15] MEDS: ENOXAPARIN 40 MG/0.4 ML SYRINGE SUB-Q (09:30)
[2022-11-15] MEDS: MIRTAZAPINE 15 MG TABLET PO (09:30)
[2022-11-15] MEDS: guaiFENesin 200 MG/10 ML UDC 400 MG PO ×3 (09:30→17:06)
[2022-11-15] MEDS: methylPREDNISolone SOD SUCC 125 MG VIAL 60 MG IV PUSH ×2 (09:30→21:27)
--- NOTE | 2022-11-15 10:23 | PM.IMPN ---
Progress Note: A&P Assessment and Plan (1) Lung cancer: Code(s): C34.90 - Malignant neoplasm of unspecified part of unspecified bronchus or lung Status: Chronic Assessment and Plan: Patient recently diagnosed with lung cancer.? CTA revealed multiple pulmonary nodules, chest lymphadenopathy and bone lesions consistent with metastatic disease. IV methylprednisone 60 mg q.12 hours Patient currently on 2 L of oxygen.? Wean to maintain O2 saturation greater than 92%.? DuoNebs q.6 hours. Oncology consulted. Care coordination consult for hospice referral. After talking with both hospice and Oncology patient's family has decided to proceed with chemotherapy at this time. (2) Pneumonia: Code(s): J18.9 - Pneumonia, unspecified organism Status: Acute Assessment and Plan: Chest x-ray and CTA both showing bilateral pleural effusion. Patient with a white count of 17.8. Patient was on recent steroids which could explain the white count. She appears to be acutely ill so will cover for pneumonia. Ceftriaxone and azithromycin initiated. Sputum culture pending (3) Hypoxia: Code(s): R09.02 - Hypoxemia Status: Acute Assessment and Plan: Patient on 1 L of oxygen at rest and 2 L with activity On 2.5 L. Wean to maintain oxygen saturation greater than 90% (4) History of COPD: Code(s): Z87.09 - Personal history of other diseases of the respiratory system Status: Chronic Assessment and Plan: Continue daily inhalers as well as DuoNebs. Not in active exacerbation. (5) History of hypertension: Code(s): Z86.79 - Personal history of other diseases of the circulatory system Status: Chronic Assessment and Plan: Continue home medications. Monitor blood pressures. Plan Patient does have +2 pedal edema. Will order echocardiogram to rule out CHF causes. Subjective Date/time seen: 11/15/22 10:23 Interval history: no new complaints Exam Narrative: GENERAL: Comfortable, no acute distress HENMT: moist mucous membranes EYES: EOM intact b/l NECK: no lymphadenopathy RESPIRATORY: Distant breath sounds, faint bibasilar crackles CARDIO: Tachycardia, rhythm controlled GI: soft, nontender, bowel sounds present SKIN: no rashes EXTREMITIES: No edema, no redness or tenderness Objective Data Vital Signs Vital Signs: Vital Signs - 24 hr 11/14/22 14:06 11/14/22 14:06 11/14/22 14:19 Temperature Pulse Rate 91 96 Respiratory Rate 20 20 Blood Pressure Pulse Oximetry 92 Oxygen Delivery Nasal Cannula Oxygen Flow Rate 2 Fraction of Inspired Oxygen 28 11/14/22 14:25 11/14/22 12:00 11/14/22 16:00 Temperature 97.6 F Pulse Rate 94 100 99 Respiratory Rate 18 Blood Pressure 112/47 L Pulse Oximetry 93 Oxygen Delivery Oxygen Flow Rate Fraction of Inspired Oxygen 11/14/22 18:53 11/14/22 20:35 11/14/22 21:01 Temperature 98.1 F Pulse Rate 96 102 H 104 H Respiratory Rate 20 20 20 Blood Pressure 129/63 Pulse Oximetry 96 Oxygen Delivery Oxygen Flow Rate Fraction of Inspired Oxygen 11/14/22 21:07 11/15/22 01:12 11/15/22 01:19 Temperature Pulse Rate 101 H 100 100 Respiratory Rate 20 20 20 Blood Pressure Pulse Oximetry Oxygen Delivery Oxygen Flow Rate Fraction of Inspired Oxygen 11/14/22 20:00 11/14/22 20:00 11/15/22 00:00 Temperature Pulse Rate 102 H 97 Respiratory Rate Blood Pressure Pulse Oximetry 94 Oxygen Delivery Nasal Cannula Oxygen Flow Rate 2 Fraction of Inspired Oxygen 11/15/22 04:00 11/15/22 05:43 11/15/22 06:05 Temperature 97.9 F Pulse Rate 97 104 H 99 Respiratory Rate 18 20 Blood Pressure 128/63 Pulse Oximetry 98 Oxygen Delivery Oxygen Flow Rate Fraction of Inspired Oxygen 11/15/22 06:20 11/15/22 09:32 11/15/22 09:32 Temperature Pulse Rate 98
[2022-11-15] MEDS: HYDROcodone/acetaminophen (*CRX) 5-325 MG TABLET 1 TAB PO (17:06)
--- NOTE | 2022-11-15 18:05 | PM.PNPUL ---
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 she was have treatment, too sick currently for port placement, plan is to treat for pneumonia, however discharged and have this placed outpatient.? (2) Pneumonia: Code(s): J18.9 - Pneumonia, unspecified organism Status: Acute Assessment and Plan: She may have a clinical diagnosis of pneumonia with cough, sputum production, increased shortness of breath.? She is on empiric antibiotics with azithromycin? and ceftriaxone.? She is negative for COVID, influenza a and B, RSV.? Will send urine for Legionella and pneumococcus. (3) Hypoxia: Code(s): R09.02 - Hypoxemia Status: Acute Assessment and Plan: Now on 2 L/min, saturation is 96%, adequate. ? She was just recently placed on oxygen at her last hospitalization October 28, is using it 2 L a minute at home which is adequate here. (4) COPD (chronic obstructive pulmonary disease): Code(s): J44.9 - Chronic obstructive pulmonary disease, unspecified Status: Acute Assessment and Plan: COPD, long history of smoking, quit 20 years ago, was using nicotine gum 10-20 pieces per day.? ? She is on inhalers at home including rescue medication within nebulizer and rescue inhaler. not on nicotine replacement while here.?Does not appear to need NRT. Plan She has had several days of treatment for pneumonia and IV steroids for COPD; her main problem is large lung cancer mass in the right lung with nodules throughout the lung, not pneumonia. This is superimposed on advanced COPD.? We can continue treating her for pneumonia, using pulmonary hygiene techniques however she does not appear that she will improve enough to get port placement for outpatient treatment of lung cancer.? Her arms are extremely swollen. External jugular veins are distended. 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 I talked with Dr Nguyen. He is also concerned, and we will re-assess day by day. Her prognosis is very guarded. ? Consider another discussion about hospice. Subjective Date/time seen: 11/15/22 12:15 p.m. Interval history: hospital follow up : Gladys Rollins is an 87-year-old woman with a recent diagnosis of adenocarcinoma of the lung, admitted with increased shortness of breath and weakness. Her cancer was found during work up for Back pain.? She had surgery several years ago.? She went in for re-evaluation.? A CT was ordered and this showed widely metastatic lung cancer.? This all happened in the last 4-5 weeks.? She did not have pulmonary symptoms at the time but she has now developed increasing cough, shortness breath, clear to cream colored sputum production. She has small bilateral pleural effusions, ? She had negative testing for COVID, influenza a and B, RSV.? Her white count is more elevated November 14.2.? She is on empiric treatment for pneumonia. 11/15/2022 - She had a small dose of Ativan 0.25 mg before the day shift started, and she was sleepy much of the morning when I came by. She is down to 2 L/min O2 by nasal cannula, has weeping from arms with edema, external jugular veins still distended. She still has a cough with little sputum production. Ramu seemed to benefit from Nebulized Mucomyst, contin
[2022-11-15] MEDS: BUDESONIDE RESPULE NEB 0.5 MG/2 ML AMP INHALATION (20:10)
[2022-11-15] MEDS: CHOLESTYRAMINE (W/ SUGAR) 4 GM POWD.PACK PO (21:27)
[2022-11-16] VITALS (19 sets, daily range): BP systolic 117–146; BP diastolic 52–63; PULSE 80–107; RESP 18–24; TEMP 36.8–37.2; O2SAT 93–100
[2022-11-16] MEDS: ALBUTEROL SULFATE NEB 2.5 MG/3 ML INH INHALATION ×4 (02:10→19:58)
[2022-11-16] MEDS: BUDESONIDE RESPULE NEB 0.5 MG/2 ML AMP INHALATION ×2 (08:29→19:59)
[2022-11-16] MEDS: MEGESTROL ACETATE (*CHEMO) ORAL SUSP 40 MG/ML SYR 800 MG PO (09:06)
[2022-11-16] MEDS: ENOXAPARIN 40 MG/0.4 ML SYRINGE SUB-Q (09:06)
[2022-11-16] MEDS: methylPREDNISolone SOD SUCC 125 MG VIAL 60 MG IV PUSH ×2 (09:06→20:30)
[2022-11-16] MEDS: MIRTAZAPINE 15 MG TABLET PO (09:07)
--- NOTE | 2022-11-16 09:07 | PCPTNOTE ---
Attempted PT evaluation, Pt refused due to just getting back to bed. RN present during refusal. Will follow.
[2022-11-16] MEDS: MIRABEGRON 25 MG ER TABLET PO (09:08)
[2022-11-16] MEDS: guaiFENesin 200 MG/10 ML UDC 400 MG PO ×3 (09:19→16:45)
[2022-11-16] MEDS: AZITHROMYCIN 500 MG/NS 250 ML 500 MG/250 ML BAG 250 MG IVPB (09:22)
--- NOTE | 2022-11-16 10:44 | PM.IMPN ---
Progress Note: A&P Assessment and Plan (1) Lung cancer: Code(s): C34.90 - Malignant neoplasm of unspecified part of unspecified bronchus or lung Status: Chronic Assessment and Plan: Patient recently diagnosed with lung cancer.? CTA revealed multiple pulmonary nodules, chest lymphadenopathy and bone lesions consistent with metastatic disease. IV methylprednisone 60 mg q.12 hours Patient currently on 2 L of oxygen.? Wean to maintain O2 saturation greater than 92%.? DuoNebs q.6 hours. Oncology consulted. Care coordination consult for hospice referral. After talking with both hospice and Oncology patient's family has decided to proceed with chemotherapy at this time. (2) Pneumonia: Code(s): J18.9 - Pneumonia, unspecified organism Status: Acute Assessment and Plan: Chest x-ray and CTA both showing bilateral pleural effusion. Patient with a white count of 17.8. Patient was on recent steroids which could explain the white count. She appears to be acutely ill so will cover for pneumonia. Ceftriaxone and azithromycin initiated. Sputum culture pending (3) Hypoxia: Code(s): R09.02 - Hypoxemia Status: Acute Assessment and Plan: Patient on 1 L of oxygen at rest and 2 L with activity On 2.5 L. Wean to maintain oxygen saturation greater than 90% (4) History of COPD: Code(s): Z87.09 - Personal history of other diseases of the respiratory system Status: Chronic Assessment and Plan: Continue daily inhalers as well as DuoNebs. Not in active exacerbation. (5) History of hypertension: Code(s): Z86.79 - Personal history of other diseases of the circulatory system Status: Chronic Assessment and Plan: Continue home medications. Monitor blood pressures. Plan Patient does have +2 pedal edema. Will order echocardiogram to rule out CHF causes. Subjective Date/time seen: 11/16/22 10:44 Interval history: No new complaints. Exam Narrative: GENERAL: Comfortable, no acute distress HENMT: moist mucous membranes EYES: EOM intact b/l NECK: no lymphadenopathy RESPIRATORY: Distant breath sounds, faint bibasilar crackles CARDIO: Tachycardia, rhythm controlled GI: soft, nontender, bowel sounds present SKIN: no rashes EXTREMITIES: No edema, no redness or tenderness Objective Data Vital Signs Vital Signs: Vital Signs - 24 hr 11/15/22 14:01 11/15/22 14:25 11/15/22 14:34 Temperature 98.9 F Pulse Rate 93 103 H 103 H Respiratory Rate 16 20 20 Blood Pressure 124/60 Pulse Oximetry 97 Oxygen Delivery Oxygen Flow Rate 11/15/22 12:04 11/15/22 16:00 11/15/22 20:10 Temperature Pulse Rate 96 109 H 94 Respiratory Rate 20 Blood Pressure Pulse Oximetry Oxygen Delivery Oxygen Flow Rate 11/15/22 20:10 11/15/22 20:20 11/15/22 21:12 Temperature 98.2 F Pulse Rate 94 96 92 Respiratory Rate 20 18 Blood Pressure 112/56 L Pulse Oximetry 94 94 Oxygen Delivery Nasal Cannula Oxygen Flow Rate 2 11/15/22 20:00 11/15/22 20:00 11/16/22 02:10 Temperature Pulse Rate 99 95 Respiratory Rate 20 Blood Pressure Pulse Oximetry 94 Oxygen Delivery Nasal Cannula Oxygen Flow Rate 2 11/16/22 02:20 11/16/22 05:30 11/16/22 00:00 Temperature 98.3 F Pulse Rate 94 98 98 Respiratory Rate 20 18 Blood Pressure 117/60 Pulse Oximetry 93 Oxygen Delivery Oxygen Flow Rate 11/16/22 04:00 11/16/22 08:01 11/16/22 08:18 Temperature Pulse Rate 101 H 97 99 Respiratory Rate 24 H Blood Pressure Pulse Oximetry Oxygen Delivery Oxygen Flow Rate 11/16/22 08:31 11/16/22 08:47 Temperature Pulse Rate 97 Respiratory Rate 20 Blood Pressure Pulse Oximetry 93 Oxygen Delivery Nasal Cannula Oxygen Flow Rate 2 Intake/Output Intake/Output: Intake & Output 11/13/22 11/14/22 11/15/22 11/16/22 23:59
--- NOTE | 2022-11-16 13:46 | PCPTNOTE ---
On 11/16/22, the student, WENDIE Sutherland, provided care and completed [facility] documentation on this patient. I have reviewed the student's documentation and agree with the findings.
[2022-11-16] MEDS: HYDROcodone/acetaminophen (*CRX) 5-325 MG TABLET 1 TAB PO (20:22)
--- NOTE | 2022-11-16 21:46 | PM.PNPUL ---
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 she was have treatment, too sick currently for port placement, plan is to treat for pneumonia, however discharged and have this placed outpatient.? (2) Pneumonia: Code(s): J18.9 - Pneumonia, unspecified organism Status: Acute Assessment and Plan: I think she has more lung cancer and less pneumonia. Her symptoms with cough, sputum production, increased shortness of breath.? are from lung cancer and metastatic spread in the lungs david the right side. She is on empiric antibiotics with azithromycin and ceftriaxone.? She is negative for COVID, influenza a and B, RSV.? Pending urine for Legionella and pneumococcus; sputum showed many epithelial cells, not a good specimen. (3) Hypoxia: Code(s): R09.02 - Hypoxemia Status: Acute Assessment and Plan: Now on 2 L/min, saturation is 96%, adequate. ? She was just recently placed on oxygen at her last hospitalization October 28, is using it 2 L a minute at home which is adequate here. (4) COPD (chronic obstructive pulmonary disease): Code(s): J44.9 - Chronic obstructive pulmonary disease, unspecified Status: Acute Assessment and Plan: COPD, long history of smoking, quit 20 years ago, was using nicotine gum 10-20 pieces per day.? ? She is on inhalers at home including rescue medication within nebulizer and rescue inhaler. not on nicotine replacement while here.?Does not appear to need NRT. Plan Will discuss with Dr Nguyen and Dr Pro stopping pneumonia treatment, because it is not really doing a lot, and see about moving towards getting port placed and starting Rx. Convert steroids to oral. Her main problem is large lung cancer mass in the right lung with nodules throughout the lung, not pneumonia. continue pulmonary hygiene techniques. Her arms still swollen. External jugular veins are distended. 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 Her prognosis is very guarded. Subjective Date/time seen: 11/16/22 21:46 Interval history: hospital follow up : Gladys Rollins is an 87-year-old woman with a recent diagnosis of adenocarcinoma of the lung, admitted with increased shortness of breath and weakness. Her cancer was found during work up for Back pain.? She had surgery several years ago.? She went in for re-evaluation.? A CT was ordered and this showed widely metastatic lung cancer.? This all happened in the last 4-5 weeks.? She did not have pulmonary symptoms at the time but she has now developed increasing cough, shortness breath, clear to cream colored sputum production. She has small bilateral pleural effusions, ? She had negative testing for COVID, influenza a and B, RSV.? Her white count is more elevated November 14.2.? She is on empiric treatment for pneumonia. 11/15/2022 - She had a small dose of Ativan 0.25 mg before the day shift started, and she was sleepy much of the morning when I came by. She is down to 2 L/min O2 by nasal cannula, has weeping from arms with edema, external jugular veins still distended. She still has a cough with little sputum production. She seemed to benefit from Nebulized Mucomyst, continues azithromycin and ceftriaxone. 11/16/2022 She looks better, sitting up in a chair, getting benefit from Cornet valve and mucolytics. Alert. She still has swelling in
[2022-11-16] MEDS: CHOLESTYRAMINE (W/ SUGAR) 4 GM POWD.PACK PO (22:05)
[2022-11-17] VITALS (20 sets, daily range): BP systolic 106–137; BP diastolic 60–87; PULSE 85–106; RESP 20; TEMP 36.4–37; O2SAT 94–96
[2022-11-17] MEDS: ALBUTEROL SULFATE NEB 2.5 MG/3 ML INH INHALATION ×4 (02:10→20:34)
[2022-11-17 05:34] LABS: Basophils Percent Auto 0.1 % (0.2-1.2); Eosinophils Percent Auto 0.3 % (0-4.4); Hematocrit 31.7 % (37.0-47.0); Hemoglobin 10.2 g/dL (12.0-15.0); Immature Granulocyte Absolute 0.11 K/mm3 (0.00-0.031); Immature Granulocyte Percent A 0.8 % (0-0.5); Lymphocytes Absolute Auto 0.23 K/mm3 (0.9-3.2); Lymphocytes Percent Auto 1.6 % (18.3-44.2); Mean Corpuscular HGB Conc 32.2 g/dl (32-36); Mean Corpuscular Hemoglobin 30.5 pg (26-34); Mean Corpuscular Volume 94.9 fl (80-100); Mean Platelet Volume 8.7 fl (7.4-10.4); Monocytes Absolute Auto 0.7 K/mm3 (0.1-0.6); Monocytes Percent Auto 5.2 % (2.6-8.5); Neutrophils Absolute Auto 12.9 K/mm3 (1.3-6.7); Platelet Count Result 374 k/mm3 (150-375); Red Blood Count 3.34 M/mm3 (4.2-5.4); Red Cell Distribution Width 13.6 % (11.5-14.5)
[2022-11-17] MEDS: BUDESONIDE RESPULE NEB 0.5 MG/2 ML AMP INHALATION ×2 (08:01→20:34)
--- NOTE | 2022-11-17 09:21 | PCNFU ---
Nutrition Follow-Up Complete: Inadequate oral intake related to chronic cancer, loss of appetite as evidenced by poor intakes 10-75% since admission, report of loss of appetite and possible weight loss Improved PO intake at least 50% meals and supplements - Goal being met Maintain weight during admission - Goal being met, needs re-weighed Goal: Pt current nutrition Heart healthy diet, intakes 75-100%. Drinking 100% Ensure Compact. Nutrition recommendation: Continue with current nutrition care plan. Agree with orders Last recorded weight is 54.7 kg. Bowel Motility: +1 BM 11/17/22 Labs Reviewed: Hgb 10.2, Hct 31.7 Meds Noted: Megace, Remeron, Prednisone Skin:maceration to coccyx, no pressure injury Additional Notes: Progressing to nutrition goals with improved intakes. Planning for outpatient placement of chemo port when able. Continue current goal and care plan. Agree with current orders, no changes. Monitoring intakes, weights, labs, supplement tolerance, plan of care Follow up in 5 days
[2022-11-17] MEDS: predniSONE 40 MG, predniSONE 10 MG 50 MG PO (09:24)
[2022-11-17] MEDS: CEFDINIR 300 MG CAPSULE PO ×2 (09:25→20:40)
[2022-11-17] MEDS: ENOXAPARIN 40 MG/0.4 ML SYRINGE SUB-Q (09:26)
[2022-11-17] MEDS: MEGESTROL ACETATE (*CHEMO) ORAL SUSP 40 MG/ML SYR 800 MG PO (09:27)
[2022-11-17] MEDS: MIRABEGRON 25 MG ER TABLET PO (09:27)
[2022-11-17] MEDS: MIRTAZAPINE 15 MG TABLET PO (09:28)
[2022-11-17] MEDS: HYDROcodone/acetaminophen (*CRX) 5-325 MG TABLET 1 TAB PO ×2 (09:28→21:09)
[2022-11-17] MEDS: guaiFENesin 200 MG/10 ML UDC 400 MG PO ×3 (09:35→16:56)
--- NOTE | 2022-11-17 11:35 | PM.IMPN ---
Progress Note: A&P Assessment and Plan (1) Lung cancer: Code(s): C34.90 - Malignant neoplasm of unspecified part of unspecified bronchus or lung Status: Chronic Assessment and Plan: Patient recently diagnosed with lung cancer.? CTA revealed multiple pulmonary nodules, chest lymphadenopathy and bone lesions consistent with metastatic disease. IV methylprednisone Patient currently on 2 L of oxygen.? Wean to maintain O2 saturation greater than 92%.? DuoNebs q.6 hours. Oncology consulted. Care coordination consult for hospice referral. After talking with both hospice and Oncology patient's family has decided to proceed with chemotherapy at this time. (2) Pneumonia: Code(s): J18.9 - Pneumonia, unspecified organism Status: Acute Assessment and Plan: Chest x-ray and CTA both showing bilateral pleural effusion. Patient with a white count of 17.8. Patient was on recent steroids which could explain the white count. She appears to be acutely ill so will cover for pneumonia. Ceftriaxone and azithromycin initiated. Sputum culture pending (3) Hypoxia: Code(s): R09.02 - Hypoxemia Status: Acute Assessment and Plan: Patient on 1 L of oxygen at rest and 2 L with activity On 2.5 L. Wean to maintain oxygen saturation greater than 90% (4) History of COPD: Code(s): Z87.09 - Personal history of other diseases of the respiratory system Status: Chronic Assessment and Plan: Continue daily inhalers as well as DuoNebs. Not in active exacerbation. (5) History of hypertension: Code(s): Z86.79 - Personal history of other diseases of the circulatory system Status: Chronic Assessment and Plan: Continue home medications. Monitor blood pressures. Plan Patient does have +2 pedal edema. Will order echocardiogram to rule out CHF causes. Subjective Date/time seen: 11/17/22 11:35 Interval history: New complaints. Exam Narrative: GENERAL: Comfortable, no acute distress HENMT: moist mucous membranes EYES: EOM intact b/l NECK: no lymphadenopathy RESPIRATORY: Distant breath sounds, faint bibasilar crackles CARDIO: Tachycardia, rhythm controlled GI: soft, nontender, bowel sounds present SKIN: no rashes EXTREMITIES: No edema, no redness or tenderness Objective Data Vital Signs Vital Signs: Vital Signs - 24 hr 11/16/22 11:43 11/16/22 12:04 11/16/22 13:36 Temperature Pulse Rate 105 H 91 Respiratory Rate 20 Blood Pressure Pulse Oximetry Oxygen Delivery Nasal Cannula Oxygen Flow Rate 2 11/16/22 14:00 11/16/22 16:01 11/16/22 19:59 Temperature 98.5 F Pulse Rate 97 107 H 105 H Respiratory Rate 20 20 Blood Pressure 121/52 L Pulse Oximetry 100 Oxygen Delivery Oxygen Flow Rate 11/16/22 20:03 11/16/22 20:09 11/16/22 20:52 Temperature 99.0 F Pulse Rate 105 H 98 80 Respiratory Rate 20 18 Blood Pressure 146/63 H Pulse Oximetry 96 100 Oxygen Delivery Nasal Cannula Oxygen Flow Rate 2 11/17/22 02:10 11/17/22 02:49 11/16/22 20:00 Temperature Pulse Rate 88 92 Respiratory Rate 20 20 Blood Pressure Pulse Oximetry 100 Oxygen Delivery Nasal Cannula Oxygen Flow Rate 2 11/16/22 20:00 11/17/22 00:00 11/17/22 04:00 Temperature Pulse Rate 103 H 90 85 Respiratory Rate Blood Pressure Pulse Oximetry Oxygen Delivery Oxygen Flow Rate 11/17/22 05:22 11/17/22 08:03 11/17/22 08:05 Temperature 97.9 F Pulse Rate 89 90 92 Respiratory Rate 20 20 Blood Pressure 137/60 Pulse Oximetry 94 96 Oxygen Delivery Nasal Cannula Oxygen Flow Rate 2 11/17/22 08:16 Temperature Pulse Rate 90 Respiratory Rate 20 Blood Pressure Pulse Oximetry Oxygen Delivery Oxygen Flow Rate Intake/Output Intake/Output: Intake & Output 11/14/22 11/15/22 11/16/22 11/17/22 23:59 23:59 23:59 23:59 Intake
[2022-11-17] MEDS: CHOLESTYRAMINE (W/ SUGAR) 4 GM POWD.PACK PO (20:40)
[2022-11-18] VITALS (12 sets, daily range): BP systolic 113; BP diastolic 50; PULSE 69–98; RESP 20–22; TEMP 36.9; O2SAT 93–94
[2022-11-18] MEDS: ALBUTEROL SULFATE NEB 2.5 MG/3 ML INH INHALATION ×3 (02:34→14:28)
[2022-11-18] MEDS: MIRTAZAPINE 15 MG TABLET PO (08:12)
[2022-11-18] MEDS: predniSONE 40 MG, predniSONE 10 MG 50 MG PO (08:13)
[2022-11-18] MEDS: MEGESTROL ACETATE (*CHEMO) ORAL SUSP 40 MG/ML SYR 800 MG PO (08:13)
[2022-11-18] MEDS: ENOXAPARIN 40 MG/0.4 ML SYRINGE SUB-Q (08:13)
[2022-11-18] MEDS: CEFDINIR 300 MG CAPSULE PO (08:13)
[2022-11-18] MEDS: MIRABEGRON 25 MG ER TABLET PO (08:13)
[2022-11-18] MEDS: guaiFENesin 200 MG/10 ML UDC 400 MG PO ×2 (08:14→13:19)
[2022-11-18] MEDS: BUDESONIDE RESPULE NEB 0.5 MG/2 ML AMP INHALATION (09:17)
--- NOTE | 2022-11-18 10:39 | PCOTNOTE ---
Attempted OT treatment in AM. Pt and pt's daughter requested to try later in the day as the pt was too tired. Will follow.
--- NOTE | 2022-11-18 11:59 | PM.DS ---
DS: Admitting Diagnosis Discharge Date November 19, 2019 Admitting Diagnosis lung cancer DS: Discharge Diagnosis Discharge Diagnosis (1) Lung cancer: Code(s): C34.90 - Malignant neoplasm of unspecified part of unspecified bronchus or lung Status: Chronic Assessment and Plan: Patient recently diagnosed with lung cancer.? CTA revealed multiple pulmonary nodules, chest lymphadenopathy and bone lesions consistent with metastatic disease. IV methylprednisone Patient currently on 2 L of oxygen.? Wean to maintain O2 saturation greater than 92%.? DuoNebs q.6 hours. Oncology consulted. Care coordination consult for hospice referral. After talking with both hospice and Oncology patient's family has decided to proceed with chemotherapy at this time. (2) Pneumonia: Code(s): J18.9 - Pneumonia, unspecified organism Status: Acute Assessment and Plan: Chest x-ray and CTA both showing bilateral pleural effusion. Patient with a white count of 17.8. Patient was on recent steroids which could explain the white count. She appears to be acutely ill so will cover for pneumonia. Ceftriaxone and azithromycin initiated. Sputum culture pending (3) Hypoxia: Code(s): R09.02 - Hypoxemia Status: Acute Assessment and Plan: Patient on 1 L of oxygen at rest and 2 L with activity On 2.5 L. Wean to maintain oxygen saturation greater than 90% (4) History of COPD: Code(s): Z87.09 - Personal history of other diseases of the respiratory system Status: Chronic Assessment and Plan: Continue daily inhalers as well as DuoNebs. Not in active exacerbation. (5) History of hypertension: Code(s): Z86.79 - Personal history of other diseases of the circulatory system Status: Chronic Assessment and Plan: Continue home medications. Monitor blood pressures. Plan Patient does have +2 pedal edema. Will order echocardiogram to rule out CHF causes. DS: Summary Hospital Course Hospital Course: patient is an 87-year-old female who has a history of COPD past history of smoking. Patient was admitted for lung cancer and postobstructive pneumonia. Oncology was consulted and although the patient can not undergo chemotherapy right now she does want to consider chemotherapy if she improves. Pulmonary was also consulted we adjusted her medications and treat her for pneumonia. She is going to be discharged to acute rehab. She is going to continue 1 more day of antibiotics and steroid taper. Otherwise patient is medically stable can be discharged. she will need to follow-up Oncology if she wants to be evaluated for chemotherapy. She does have a 2nd opinion scheduled at [facility] in the next 10 days. Time Spent with Patient Time attestation: Total time spent providing and/or coordinating discharge services: Exam Narrative: GENERAL: Comfortable, no acute distress HENMT: moist mucous membranes EYES: EOM intact b/l NECK: no lymphadenopathy RESPIRATORY: Distant breath sounds, faint bibasilar crackles CARDIO: Tachycardia, rhythm controlled GI: soft, nontender, bowel sounds present SKIN: no rashes EXTREMITIES: No edema, no redness or tenderness Discharge Plan Discharge Attending physician on discharge: Balwinder Pro Consulting providers: Srikanth Nguyen; Madison Barbour Discharging Clinician: Balwinder Pro Patient Disposition: Inpatient Rehab Facility Activity: as tolerated Diet: as tolerated Patient Instructions: Antibiotic Form, Pain Management (GEN) Stand Alone Forms: General Discharge Information Discharge Medications: New albuterol sulfate 2.5 mg /3 mL (0.083 %) Solution For Nebulization 2.5 mg inhalation Q6HRT 30 Days Qty: 360 0RF prednisone 50 mg Tablet 50 mg PO DAILY@0800 2 Days Qty: 2 0RF cefdinir 300 mg Capsule 300 mg PO Q12HR 1 Days Qty: 2 0RF hydrocodone-ac
--- NOTE | 2022-11-18 12:16 | PM.PNPUL ---
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 She was to have treatment, too sick currently for port placement, will go to rehab, get first chemo IV, and if she tolerates, get port placed. ? (2) Pneumonia: Code(s): J18.9 - Pneumonia, unspecified organism Status: Acute Assessment and Plan: I think she has more lung cancer and less pneumonia. Symptoms were cough, sputum production, increased shortness of breath, stabilized, and likely from lung cancer on kelly right side with metastatic spread to left lung. She has large nodules both side. She is negative for COVID, influenza a and B, RSV, and even on day of discharge, urine for Legionella and pneumococcus are pendng. WBC is lower 14K. No fever. (3) Hypoxia: Code(s): R09.02 - Hypoxemia Status: Acute Assessment and Plan: Now on 2 L/min, saturation is 94-100%. She was just recently placed on oxygen at her last hospitalization October 28, is using it 2 L a minute at home which is adequate here. (4) COPD (chronic obstructive pulmonary disease): Code(s): J44.9 - Chronic obstructive pulmonary disease, unspecified Status: Acute Assessment and Plan: COPD, long history of smoking, quit 20 years ago, was using nicotine gum 10-20 pieces per day.? ? She is on inhalers at home including rescue medication within nebulizer and rescue inhaler. Not on nicotine replacement while here.?Does not appear to need NRT. Plan Discussed with her daughter Dianelys. Will add Lasix 20 mg IV now for excessive swelling;may benefit from oral diuretic for edema. She is ready to go to rehab today. Has large lung cancer mass in the right lung with nodules throughout the lung, not pneumonia. Continue pulmonary hygiene techniques. Her arms still swollen. External jugular veins are distended. 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 Her prognosis is very guarded. She can follow up in our office in 2 weeks or so. Subjective Date/time seen: 11/18/22 12:16 Interval history: hospital follow up?: Gladys Rollins is an 87-year-old woman with a recent diagnosis of adenocarcinoma of the lung, admitted with increased shortness of breath and weakness. Her cancer was found during work up for Back pain.? She had surgery several years ago.? She went in for re-evaluation.? A CT was ordered and this showed widely metastatic lung cancer.? This all happened in the last 4-5 weeks.? She did not have pulmonary symptoms at the time but she has now developed increasing cough, shortness breath, clear to cream colored sputum production. She has small bilateral pleural effusions, ? She had negative testing for COVID, influenza a and B, RSV.? Her white count is more elevated November 14.2.? She is on empiric treatment for pneumonia. 11/15/2022 - She had a small dose of Ativan 0.25 mg before the day shift started, and she was sleepy much of the morning when I came by. She is down to 2 L/min O2 by nasal cannula, has weeping from arms with edema, external jugular veins still distended. She still has a cough with little sputum production. She seemed to benefit from Nebulized Mucomyst, continues? azithromycin and ceftriaxone. 11/16/2022 She looks better, sitting up in a chair, getting benefit from Cornet valve and mucol
[2022-11-18] MEDS: FUROSEMIDE INJ 40 MG/4 ML VIAL 20 MG IV PUSH (13:19)
[2022-11-18 23:47] LABS: Pneumococcal Antigen Urine Not Detected (Not Detected)
[2022-11-19 04:09] LABS: Legionella pneumophila Ag Ur Not Detected (Not Detected)
== END 2022-11-18 15:25 | DRG 194 ==
LOC: ANHED 06:30 → ANH3MEDSUR 07:50 → ANH2MED 08:19
PROVIDERS: Internal Medicine Critical Care Medicine; Admitting Provider Internal Medicine; Emergency Provider Emergency Medicine; PCP Nurse Practitioner Family; Visit Provider Chiropractor
DX: J18.9 Pneumonia, unspecified organism (principal); C34.81 Malignant neoplasm of overlapping sites of right bronchus and lung; J44.0 Chronic obstructive pulmonary disease with (acute) lower respiratory infection; C77.1 Secondary and unspecified malignant neoplasm of intrathoracic lymph nodes; C79.51 Secondary malignant neoplasm of bone; I10 Essential (primary) hypertension; R09.02 Hypoxemia; M81.0 Age-related osteoporosis without current pathological fracture; Z87.891 Personal history of nicotine dependence; Z20.822 Contact with and (suspected) exposure to COVID-19
CPT/HCPCS: 36415; 71045; 71275; 80047; 80053; 82533; 82570; 83605; 83880; 84155; 84165; 84295; 84300; 84484; 85025; 85610; 85730; 87040; 87070; 87205; 87449; 87637; 87899; 93005; 93306; 94640; 94667; 94668; 96361; 96365; 96366; 96372; 96375; 96376; 97162; 97165; 97530; 97535; 99285; A9270; G0378; J0456; J0696; J1650; J1940; J2060; J2270; J2930; J7030; J7512; Q9967